=== PATIENT | male | born 1960 | race Caucasian/White ===

== ENCOUNTER 2016-10-12 12:32 | Inpatient (IN) | payer OTHER, MEDICARE ==
[~2016-10-12] VITALS: Ht 177.8 cm; Wt 83.2 kg
[~2016-10-12 12:32] MED LIST: AMLODIPINE10 MG PO; BYSTOLIC10 M1 PO; BYSTOLIC20 M1 PO; CHILDREN'S ASPI81 M1 PO; CRESTOR20 M2 PO; ESCITALOPRAM OX10 MG PO; HYDRALAZINE HCL50 M1 PO; LANTUS SOLOS100 U/ML SC; LASIX40 MG PO; LEVEMIR 10100 UNITS/ SC; LEVEMIR FLEX100 U/ML SC; LEVEMIR100 UNIT/1 SC; LEXAPRO 10MG10 MG PO; LISINOPRIL2.5 M1 PO; LOMOTIL 2.5-0.1 EACH PO; METOCLOPRAM5 MG/5 M2 PO; METRONIDAZOLE500 M1 PO; MIRALAX17 GM PO; NEPHROCAPS1 TAB PO; NOVOLOG FL100 UNIT/1; NOVOLOG FLEX100 U/ML SC; NOVOLOG100 U/ML SC; NOVOLOG100 UNIT/1 SC; NOVOLOG100 UNIT/2 SC; PERCOCET 325 MG1 TA2 PO; Prinivil PO; REGLAN10 M1 PO; SENOKOT8.6 MG PO; SYNTHROID112 MCG PO; VANCOMYCIN HCL125 MG PO; ZOFRAN 4 MG TABL4 MG PO; ZOFRAN4 M1 PO
--- NOTE | 2016-10-12 13:06 | ED GENERAL ADULT ---
History of Present Illness General Chief Complaint: Nausea, Vomiting, Diarrhea Stated Complaint: NVD; BLOOD SUGAR 518 Source: patient, old records, friend Exam Limitations: no limitations Vital Signs & Intake/Output Vital Signs & Intake/Output Vital Signs Date Time Temp Pulse Resp B/P Pulse O2 O2 Flow FiO2 Ox Delivery Rate 10/12 1528 98.6 73 18 148/72 96 Room Air 10/12 1325 186/74 10/12 1252 96.9 86 18 190/100 96 Room Air Allergies Coded Allergies: NO KNOWN ALLERGIES (10/12/16) Reconcile Medications Aspirin (Children's Aspirin) 81 MG TAB.CHEW 2 TAB PO DAILY HEART HEALTH ( Reported) Escitalopram Oxalate 20 MG TABLET 1 TAB PO DAILY MENTAL HEALTH (Reported) Folic Acid/Vit Bcomp,C (Robina-Jorge Tablet) 0.8 MG TABLET 1 TAB PO DAILY KIDNEY SUPPLEMENT (Reported) Hydralazine HCl 50 MG TABLET 50 MG PO TID HEART (Reported) Insulin Aspart (Novolog) 100 UNIT/ML VIAL 0 UNITS SC TIDAC/HS diabetes BEFORE MEALS Blood Insulin Sugar Units <80 0 81-150 4 151-200 5 201-250 6 251-300 7 301-350 8 351-400 9 >400 10, Call Doctor AT BEDTIME Blood Insulin Sugar Units <80 0 81-100 0 101-200 0 201-250 0 251-300 2 301-350 3 351-400 4 >400 5 Insulin Detemir (Levemir) 100 UNIT/ML VIAL 11 UNITS SC BID diabetes Levothyroxine Sodium (Synthroid) 125 MCG TABLET 1 TAB PO DAILY THYROID ( Reported) Lisinopril 2.5 MG TABLET 1 TAB PO D HIGH BLOOD PRESSURE (Reported) Metoclopramide HCl 5 MG/5 ML (5 ML) SOLUTION 5 ML PO Q6P PRN NAUSEA/VOMITING Nebivolol HCl (Bystolic) 20 MG TABLET 1 TAB PO DAILY HEART (Reported) Rosuvastatin Calcium (Crestor) 20 MG TABLET 1 TAB PO DAILY cholesterol ( Reported) Triage Note: 56 Y/O MALE C/O N/V/D SINCE YESTERDAY; STATES HE HAD HIS DIALYSIS YESTERDAY WITH NO PROBLEMS BUT THEN BEGAN TO FEEL ILL AFTERWARDS. HAS BEEN UNABLE TO TOLERATE PO INTAKE X 24 HOURS. VOMITING SMALL AMOUNT IN BUCKET. 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 Triage Nurses Notes Reviewed? yes HPI: Patient is a 56-year-old male presents complaining of nausea, vomiting onset yesterday. Numerous episodes of vomiting since yesterday. Patient's blood sugar was greater than 500 at home today. Mild abdominal pain which patient attributes to his episodes of vomiting. Mild associated diarrhea. Patient has end-stage renal disease, on dialysis Tuesday, Tuesday, Tuesday. Patient completed his dialysis treatment yesterday. Denies chest pain, dyspnea, fevers, chills. (SANT[place] MAO) Past History Travel History Traveled to [place] past 21 day No Medical History Any Pertinent Medical History? 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 Laser eye surgery RIGHT SIDED CYNTHIA CATHETER Psychosocial History Who do you live with Brother Services at Home None What is your primary language Macanese Tobacco Use: Never used Family History Family History, If Any: BROTHER Diabetes mellitus BROTHER Diabetes mellitus MOTHER FH: colon cancer FATHER Aortic valve disorder BROTHER Relation not specified for: FHx: chronic kidney disease Hx Contributory? No (SANTOS MAO) Review of Systems Review of Systems Constitutional: Reports: malaise, weakness. EENTM: Reports: no symptoms. Respiratory: Denies: cough, short of breath. Cardiovascular: Denies: chest pain. GI: Reports: abdominal pain, nausea, vomiting. Musculoskeletal: Reports: no symptoms. Skin: Reports: no symptoms. Neurological/Psychological: Reports: no symptoms. Hematologic/Endocrine: Reports: other (elevated blood sugar). Immunologic/Allergic: Denies: splenectomy. (SANT[place] MAO) Physical Exam Physical Exam General Appearance: alert, awake, lethargic Head: atraumatic, normal appearance Eyes: Bilateral: normal appearance, PERRL, EOMI. Ears, Nose, Throat: dry mucous membranes Neck: normal inspection, supple, full range of motion Respiratory: normal breath sounds, chest non-tender, lungs clear Cardiovascular: regular rate/rhythm Gastrointestinal: soft, midl diffuse lower abdominal tenderness. Negative Bhat's sign Back: normal inspection, normal range of motion Extremities: normal range of motion Neurologic/Psych: awake, mildly lethargic. Easily responds to verbal stimuli Skin: intact, normal color, warm/dry Lymphatic: no anterior cervical mignon Core Measures ACS in differential dx? No CVA/TIA Diagnosis: No Severe Sepsis Present: No Septic Shock Present: No (EDGAR BLANCO,SANTOS) Progress Differential Diagnoses I considered the following diagnoses in my evaluation of the patient: Plan of Care: Orders Procedure Date/time Status CBC WITHOUT DIFFERENTIAL 10/13 0500 Active BASIC ELECTROLYTES PLUS BUN&CR 10/13 0100 Active EKG 10/13 0100 Active Nothing by Mouth 10/12 D Active TROPONIN LEVEL 10/12 1900 Active BASIC ELECTROLYTES PLUS BUN&CR 10/12 1900 Active EKG 10/12 1700 Active LACTIC ACID 10/12 1630 Active BASIC ELECTROLYTES PLUS BUN&CR 10/12 1600 Active Add-on Test (ER Only) 10/12 1531 Active TROPONIN LEVEL 10/12 1502 Active Pathway - chart 10/12 1456 Active Pathway - chart 10/12 1453 Active House Staff 10/12 1453 Active Patient Data 10/12 1453 Active Code Status 10/12 1453 Active Add-on Test (ER Only) 10/12 1448 Active Add-on Test (ER Only) 10/12 1447 Active Patient Data 10/12 1411 Active Admit to inpatient 10/12 1339 Active FingerStick- Glucose 10/12 1319 Active MIXED VENOUS BLOOD GAS (GEN) 10/12 1311 Complete URINALYSIS 10/12 1311 Active TROPONIN LEVEL 10/12 1311 Complete LIPASE 10/12 1311 Complete COMPREHENSIVE METABOLIC PANEL 10/12 1311 Complete CBC WITHOUT DIFFERENTIAL 10/12 1311 Complete AMYLASE 10/12 1311 Complete ACETONE 10/12 1311 Complete LACTIC ACID 10/12 1310 Complete FingerStick- Glucose 10/12 1308 Complete EKG 10/12 1308 Active Intake & Output 10/12 1306 Active Hemoccult 10/12 UNK Active FingerStick- Glucose 10/[address] ABD & PELVIS W IV CONTRAST 10/12 UNK Active Current Medications Sig/Rosi Start time Last Medication Dose Stop Time Status Admin Aspirin 162 MG DAILY 10/13 1000 UNVr (Aspirin) Escitalopram Oxalate 20 MG DAILY 10/13 1000 UNVr (Lexapro) Levothyroxine Sodium 0.125 MG DAILY 10/13 1000 UNVr (Synthroid) Multivitamins 1 TAB DAILY 10/13 1000 UNVr (Nephrocaps) Atorvastatin Calcium 80 MG 1700 10/12 1700 UNVr (Lipitor) Hydralazine HCl 50 MG TID 10/12 1600 UNVr (Apresoline) Lisinopril 2.5 MG .[D] 10/12 1515 UNVr (Prinivil) Nebivolol 20 MG DAILY 10/12 1508 UNVr (Bystolic) Acetaminophen 650 MG Q6P PRN 10/12 1500 AC (Tylenol) Morphine Sulfate 2 MG Q6-PRN PRN 10/12 1500 UNVr (Morphine) Ondansetron HCl 4 MG Q8P PRN 10/12 1500 UNVr (Zofran) Oxycodone/ 1 TAB Q6P PRN 10/12 1500 UNVr Acetaminophen (Percocet) Sodium Chloride 1,000 ML Q10H 10/12 1500 UNVr (Normal Saline 0.9%) 10/13 0159 Heparin Sodium 5,000 UNIT Q8 10/12 1453 AC (Porcine) Laboratory Tests 10/12/16 1420: Lactic Acid Cancelled 10/12/16 1320: Bicarbonate Actual 15 L, Mixed VBG pH 7.27 L, Mixed VBG pCO2 34 L, Mixed VBG O2 Saturation 49 H, P-50 (Temp Corrected) N, Carboxyhemoglobin 0.7 L, O2 Concentration % .21, O2 Delivery Method RA, Phlebotomy Draw Site RIGHT HAND 10/12/16 1310: Anion Gap 25 H, Estimated GFR 16 L, BUN/Creatinine Ratio 13.0, Glucose 648 *H, Lactic Acid 3.5 H, Calcium 8.5, Total Bilirubin 1.0, AST 22, ALT 34, Alkaline Phosphatase 173 H, Troponin I 0.06, Total Protein 6.9, Albumin 4.1, Globulin 2.8, Albumin/Globulin Ratio 1.5, Amylase < 30 L, Lipase 33, CBC w Diff NO MAN DIFF REQ, RBC 3.99 L, MCV 92.3, MCH 30.6, RDW 13.7, MPV 8.4, Gran % 79.3 H, Lymphocytes % 12.6 L, Monocytes % 7.4, Eosinophils % 0.1, Basophils % 0.6, Absolute Granulocytes 8.8 H, Absolute Lymphocytes 1.4, Absolute Monocytes 0.8 H, Absolute Eosinophils 0, Absolute Basophils 0.1, PUBS MCHC 33.1, Acetone Level POSITIVE AT 1:8 DIL 1335: Discussed with Dr. Rqoue. 10/12/2016 1:59:50 PM: Nausea significantly improved. Discussed results of labs with patient. 10/12/2016 2:10:13 PM: Discussed with Dr. Green and Dr. Acuna. Dr. Roque discussed case with Dr. Salazar for admission to ICU. (SANT[place] MAO) Initial ED EKG: normal sinus rhythm 73 bpm normal axis, borderline prolonged QT interval, no acute ST/T-wave changes compared to previous EKG Prior EKG: unchanged Rhythm Strip: normal sinus rhythm (SANT[place] MAO) Departure Departure Time of Disposition: 1417 Disposition: STILL A PATIENT Condition: Critical Clinical Impression Primary Impression: DKA (diabetic ketoacidoses) Qualifiers: Diabetes mellitus type: type 1 Diabetes mellitus complication detail: without coma Qualified Code: E10.10 - Type 1 diabetes mellitus with ketoacidosis without coma Secondary Impressions: Elevated lactic acid level, End stage renal disease Referrals: DAVIE DIAS MD (PCP/Family) Departure Forms: Customer Survey General Discharge Information Admission Note Spoke With: MINNIE SALAZAR MD Documentation of Exam: Documentation of any treatments & extenuating circumstances including Concerns Regarding Discharge (functional status, medication knowledge or non-compliance, living conditions, etc.) that warrant an admission rather than observation: ICU monitoring, insulin drip, endocrine consultation, nephrology consultation (S[place] MAO) PA/STRAIGHTENING MACHINE OPERATOR Co-Sign Statement Statement: ED Attending supervision documentation- x I saw and evaluated the patient. I have also reviewed all the pertinent lab results and diagnostic results. I agree with the findings and the plan of care as documented in the PA's/STRAIGHTENING MACHINE OPERATOR's documentation. ESRD, DM with n/v elevated FBS with gap. ICU hospitalization for insulin drip serial lab exams [] I have reviewed the ED Record and agree with the PA's/STRAIGHTENING MACHINE OPERATOR's documentation. [] Additions or exceptions (if any) to the PAs/STRAIGHTENING MACHINE OPERATOR's note and plan are summarized below: [] (BEBETO COUGHLIN,BERTHA) Critical Care Note Critical Care Note Critical Care Time: 30-74 min (EDGAR BLANCO,SANTOS)
[2016-10-12 13:23] LABS: ABSOLUTE BASOPHIL COUNT 0.1 /CUMM (0.0-0.2); ABSOLUTE EOSINOPHIL COUNT 0 /CUMM (0.0-0.7); ABSOLUTE GRANULOCYTE CT 8.8 /CUMM (1.4-6.5); ABSOLUTE LYMPH COUNT 1.4 /CUMM (1.2-3.4); ABSOLUTE MONOCYTE COUNT 0.8 /CUMM (0.10-0.60); BASOPHIL % 0.6 % (0.0-2.0); EOSINOPHIL % 0.1 % (0-5); GRANULOCYTE % 79.3 % (42.2-75.2); HEMATOCRIT 36.9 % (42-52); MEAN CORPUSCULAR HGB 30.6 PG (27.0-31.0); MEAN CORPUSCULAR HGB CONC 33.1 G/DL (33.0-37.0); MEAN CORPUSCULAR VOLUME 92.3 FL (80.0-94.0); MEAN PLATELET VOLUME 8.4 FL (7.4-10.4); PLATELET COUNT 256 /CUMM (130-400); RBC DISTRIBUTION WIDTH 13.7 % (11.5-14.5); RED BLOOD CELL CT 3.99 /CUMM (4.70-6.10); WHITE BLOOD CELL COUNT 11.1 /CUMM (4.8-10.8)
[2016-10-12] MEDS ORDERED: SYNTHROID125 MCG PO (14:10)
[2016-10-12] MEDS ORDERED: ESCITALOPRAM OX20 MG PO (14:11)
[2016-10-12] MEDS ORDERED: RENA-VITE TABL0.8 MG PO (14:12)
--- NOTE | 2016-10-12 14:36 | History & Physical ---
NEVA COUGHLIN,GENNYYvonne 10/12/16 1428: General Information and HPI MD Statement: I have seen and personally examined DAFNE DACOSTA and documented this H&P. The patient is a 56 year old M who presented with a patient stated chief complaint of [vomiting]. Source of Information: patient, old records Exam Limitations: unable to give history, clinical condition, poor historian History of Present Illness: This is a 56-year-old male with past medical history of ESRD on M/W dialysis, insulin-dependent diabetes with diabetic retinopathy/nephropathy, hypertension, hypothyroidism, hyperlipidemia, with CC of vomiting, diarrhea and lethargy. Patient was brought in by his brother, who was not in the room during our initial intake. Patient was significantly lethargic and unable to respond adequately to all our questions. Patient stated that he started vomiting prior to his dialysis appointment yesterday. He is unable to answer if he was at his baseline the days before before. He does endorse lower abdominal pain but denies chest pain, or headache. He states he still makes some urine but denies any itching, burning or any other associated symptoms. He does endorse diarrhea that started at the same time of vomiting. He denies any sick contacts, he lives with his brother, and is currently unemployed. He denies any recent smoking or drinking. Patient states he has history of appendicitis with surgery. He states he takes insulin at home and is unsure if he has missed any doses. Pt has a history of alcoholism but he states he quit drinking urine a half ago. Of note, patient has had a recent admission at on 07/2016 for similar chief complaint including diarrhea, nausea, vomiting. At that time he was found to be C. difficile positive and he was prescribed Flagyl 500 mg by mouth 3 times a day for 14 days. Additionally he's had previous admissions in 2015 for DKA. Allergies/Medications Allergies: Coded Allergies: NO KNOWN ALLERGIES (10/12/16) Home Med list Aspirin (Children's Aspirin) 81 MG TAB.CHEW 2 TAB PO DAILY HEART HEALTH ( Reported) Escitalopram Oxalate 20 MG TABLET 1 TAB PO DAILY MENTAL HEALTH (Reported) Folic Acid/Vit Bcomp,C (Robina-Bette Tablet) 0.8 MG TABLET 1 TAB PO DAILY KIDNEY SUPPLEMENT (Reported) Hydralazine HCl 50 MG TABLET 50 MG PO TID HEART (Reported) Insulin Aspart (Novolog) 100 UNIT/ML VIAL 0 UNITS SC TIDAC/HS diabetes BEFORE MEALS Blood Insulin Sugar Units <80 0 81-150 4 151-200 5 201-250 6 251-300 7 301-350 8 351-400 9 >400 10, Call Doctor AT BEDTIME Blood Insulin Sugar Units <80 0 81-100 0 101-200 0 201-250 0 251-300 2 301-350 3 351-400 4 >400 5 Insulin Detemir (Levemir) 100 UNIT/ML VIAL 11 UNITS SC BID diabetes Levothyroxine Sodium (Synthroid) 125 MCG TABLET 1 TAB PO DAILY THYROID ( Reported) Lisinopril 2.5 MG TABLET 1 TAB PO D HIGH BLOOD PRESSURE (Reported) Metoclopramide HCl 5 MG/5 ML (5 ML) SOLUTION 5 ML PO Q6P PRN NAUSEA/VOMITING Nebivolol HCl (Bystolic) 20 MG TABLET 1 TAB PO DAILY HEART (Reported) Rosuvastatin Calcium (Crestor) 20 MG TABLET 1 TAB PO DAILY cholesterol ( Reported) Compliance With Home Meds: UNKNOWN Past History Travel History Traveled to [place] past 21 day No Medical History Neurological: CVA, TIA, NEUROPATHY EENT: diabetic retinopathy, retinal edema Cardiovascular: hypertension, hyperlipidemia Respiratory: NONE Gastrointestinal: C-DIFF Hepatic: cholecystitis Renal: chronic kidney disease, DIALYSIS M-W-F FISTULA L ARM Psychiatric: alcohol dependence (he has a history of alcohol ab), anxiety, depression, substance abuse, he has a remote history of alcohol abuse but has not consumed alcohol in the year he is not used injection drugs Endocrine: diabetes, hypothyroidism Blood Disorders: NONE Cancer(s): SKIN CANCER 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 Laser eye surgery RIGHT SIDED CYNTHIA CATHETER Past Family/Social History Family History Relations & Conditions if any BROTHER Diabetes mellitus BROTHER Diabetes mellitus MOTHER FH: colon cancer FATHER Aortic valve disorder BROTHER Relation not specified for: FHx: chronic kidney disease Psychosocial History Who Do You Live With? sibling---brother Services at Home: None Primary Language: Belarusian Functional Ability ADLs Needs Assist: dressing, eating, toileting, bathing. Ambulation: independent Review of Systems Review of Systems Constitutional: Reports: malaise, weakness. EENTM: Reports: no symptoms. Cardiovascular: Denies: chest pain. Respiratory: Denies: cough, short of breath. GI: Reports: abdominal pain, diarrhea, nausea, vomiting. Genitourinary: Reports: no symptoms. Musculoskeletal: Reports: no symptoms. Skin: Reports: no symptoms. Exam & Diagnostic Data Last 24 Hrs of Vital Signs/I&O Vital Signs Date Time Temp Pulse Resp B/P Pulse O2 O2 Flow FiO2 Ox Delivery Rate 10/12 1555 98.6 73 18 148/72 10/12 1533 96 Room Air 10/12 1528 98.6 73 18 148/72 96 Room Air 10/12 1325 186/74 10/12 1252 96.9 86 18 190/100 96 Room Air Intake & Output 10/12 1600 10/12 0800 10/12 0000 Intake Total Output Total Balance Patient 87.543 kg Weight Physical Exam General Appearance Mild Distress, pt is lethargic and answers questions after much prompting. Skin No Significant Lesion HEENT Atraumatic, PERRLA, EOMI Neck Supple Cardiovascular Regular Rate, Normal S1, Normal S2 Lungs Clear to Auscultation, Normal Air Movement Abdomen pt is exquisitely tender in lower abdomen. BS+ X4. He exhibits some guarding but no rigidity. Neurological pt is lethargic. speech a little slurred and fragmented. Moving all extrimities spontaneously. Last 24 Hrs of Labs/Cristian: Laboratory Tests 10/12/16 1606: Sodium Cancelled, Potassium Cancelled, Chloride Cancelled, Carbon Dioxide Cancelled, Anion Gap Cancelled, BUN Cancelled, Creatinine Cancelled, Glucose Cancelled, Calcium Cancelled, Phosphorus Cancelled, Magnesium Cancelled, Total Bilirubin Cancelled, AST Cancelled, ALT Cancelled, Albumin Cancelled 10/12/16 1420: Lactic Acid Cancelled 10/12/16 1320: Bicarbonate Actual 15 L, Mixed VBG pH 7.27 L, Mixed VBG pCO2 34 L, Mixed VBG O2 Saturation 49 H, P-50 (Temp Corrected) N, Carboxyhemoglobin 0.7 L, O2 Concentration % .21, O2 Delivery Method RA, Phlebotomy Draw Site RIGHT HAND 10/12/16 1310: Anion Gap 25 H, Estimated GFR 16 L, BUN/Creatinine Ratio 13.0, Glucose 648 *H, Lactic Acid 3.5 H, Calcium 8.5, Total Bilirubin 1.0, AST 22, ALT 34, Alkaline Phosphatase 173 H, Troponin I 0.06, Total Protein 6.9, Albumin 4.1, Globulin 2.8, Albumin/Globulin Ratio 1.5, Amylase < 30 L, Lipase 33, CBC w Diff NO MAN DIFF REQ, RBC 3.99 L, MCV 92.3, MCH 30.6, RDW 13.7, MPV 8.4, Gran % 79.3 H, Lymphocytes % 12.6 L, Monocytes % 7.4, Eosinophils % 0.1, Basophils % 0.6, Absolute Granulocytes 8.8 H, Absolute Lymphocytes 1.4, Absolute Monocytes 0.8 H, Absolute Eosinophils 0, Absolute Basophils 0.1, PUBS MCHC 33.1, Acetone Level POSITIVE AT 1:8 DIL Microbiology 10/12 160 UPPER RESP: Surveillance Culture - ORD 10/12 1608 GI: Surveillance Culture - ORD Assessment/Plan Assessment: This is a 56-year-old male with PMH of ESRD on MWF hemodialysis, T1 insulin- dependent diabetes with resulting retinopathy, nephropathy and previous episodes of DKA, who had a previous admission at [facility] for C. difficile colitis who presents for CC N/V/D and AMS. ED workup showed temperature 96.9, pulse 86, respiration 18, blood pressure 190/ 100 and Pox 96. VBG showed 7.27/34/49. Anion gap 25. Glucose 648. BEP showed sodium 136, potassium 5.2, chloride 9.8, CO2 13, BUN 52, creatinine 4.0. Glucose of 648. Alkaline phosphatase 173. Negative amylase and lipase. Positive for acetone. CBC showed white count 11.1, hemoglobin 12.2, hematocrit 36.9, platelet 256. PLAN: Acid base disorder: VBG 7.27/34/49. Anion gap 25. Glucose 648. Corrected Na at 145. Pt has lactic acid at 3.5. Pt has positive Acetone. Given history and presentation pt is in DKA. Upon workup of his acid base disorder Chun formula shows primary respiratory acidosis as well; delta gap shows pure AGMA. Etiology of patient's acid base disorder is most likely anion gap metabolic acidosis secondary to lactic acid and DKA along with a primary respiratory acidosis. Of note, patient has had previous admission with slight increase in troponin of 0.12, we will trend troponins at this time. * Trend lactic acid * Trend troponins and EKG * Follow-up serum osm * Titrate insulin drip * q1 finger stick * NPO currently * Currently on 1/2 NS; will convert to D5 1/2 NS when blood sugars reach 200 mg/ dL * Replete K if < 5.2 Hypernatremia: Pt has measured Na of 136; Corrected sodium of around 145; given hyperglycemia of 648. Likely 2/2 DKA and urinary losses. * con't fluids as above * recheck bep Altered mental status: Patient came in with altered mental status and lethargy. He was unable to answer most questions at admission; during the interview he kept his eyes closed and was slow to respond. Differential includes: his lactic acidosis in combination with DKA causing AMS, high ammonia, possible ingestion. * treat underlying metabolic disorder * f/u lactic acid * f/u ammonia level ESRD: Patient is ESRD secondary to diabetic nephropathy. He has access in his left arm. He last got dialysis yesterday. He is going for CT abdomen with contrast today. We have coordinated with Dr. Green to ensure that patient will get dialysis tomorrow. * Access in l. arm with good flow * Dialysis tomorrow * con't lisinopril 2.5 * Avoid nephrotoxins * Con't Nephro-bette Hematemesis: Pt has had several episodes of nausea and vomiting in ED. He states that it started yesterday before dialysis. The emesis is thin liquid with little food content; but it was confirmed to be guiac positive. He also endorses significant lower abodminal pain. Given hx of T1 DM with retinopathy and nehpropathy likely there is some component of gastroparesis. But cannot rule out acute abdominal process. However, wbc at 11.1 with no bands and H/H stable at 12.2 and 36.9. Amylase negative, lipase negative. Alkaline phosphatase 173. * Trend lactic acid * CT Abdomen with IV contrast * Metaclopramide * Pt has adverse rxn to zofran so will give phergan Hypertension: Pt came in with systolic 190. Con't home reg and dialysis. * Hydralazine 50 mg 3 times a day * Bystolic 20 mg daily * Lisinopril 2.5 mg daily Hypothyroid: Con't lvothyroxine 125 FULL CODE NPO MECHANICAL DVT PROPHYLAXIS As Ranked By This Provider Problem List: 1. End stage renal disease 2. Elevated lactic acid level 3. Vomiting 4. Hyperglycemia 5. DKA (diabetic ketoacidoses) Qualifiers Diabetes mellitus type: type 1 Diabetes mellitus complication detail: without coma Qualified Code: E10.10 - Type 1 diabetes mellitus with ketoacidosis without coma 6. Lactic acidosis Core Measures/Miscellaneous Acute Coronary Syndrome ACS Diagnosis: No Cerebrovascular Accident CVA/TIA Diagnosis: No Congestive Heart Failure CHF Diagnosis: No Venous Thromboembolism VTE Risk Factors: Acute medical illness, Age > 40 VTE Prophylaxis Ordered Inpt: Mechanical (ALPS/TEDS) No Mech VTE prophylaxis d/t: No contraindications No VTE Pharm Prophylaxis d/t: Active bleeding VTE Diagnosis: No VTE Type: NONE VTE Confirmed by (Test): NONE Severe Sepsis Severe Sepsis Present: No Septic Shock Septic Shock Present: No Miscellaneous Documentation Attending Case Discussed With: MINNIE SALAZAR MD Primary Care Physician: DAVIE DIAS MD Patient sees these Specialists Dr. Green Level of Patient Care: Critical Care (CRI) NURIS HEARD 10/12/16 2629: Resident Review Statement Other Findings: Mr. Dacosta is a is a 56-year-old gentleman with past medical history of ESRD on HD MWF (L arm fistula) 2/2 DM, also complicated with diabetic retinopathy, hypertension, hypothyroidism, and HLD who presents to the ED from home w complaints of nausea/vomitting/diarrhea x1 day. He is quite lethargic at the time of the interview and is unable to communicate his history thoroughly. Most of his previous medical history was obtained from the EMR. As far as he knows, he has been taking all his medication and insulin. In the ED, vitals were T96.9, HR86, RR18, BP190/100 saturating 96 on RA. He was found to have an elevated blood glucose level of 648 with positive acetone 1:8, AG 25, bicarb 13. WBC 11.1, H/H 12.2/36.9. BEP showed Na 136, K 5.2, BUN/ creatinine 52/4.0. Lactic acid 3.5. Troponin 0.06. LFTs within normal limits. Alkaline phosphatase 173. In the emergency department he as boost with 1 L of normal saline and started on an insulin drip. Problem List/Assessment and Plan Ketoacidosis * Possibly due to infection [abdomen] compliance, the patient was unable to remember if he has been compliant with his medication over the last few days. We will make the patient ICU, continue insulin drip, as well as the fluids. * Corrected Na 149 (based on glucose 648), and as he is euvolemic, we will start half normal saline at 250 mL per hour. * Once his potassium drops below 5.3, we will replete potassium in the IV fluids to keep it between 4 - 5 mEq/L. * We will check labs every 2-4 hours, 4 PM and 7 PM on resolution of his gap and once his DKA has resolved and the patient is able to eat, we will dose NovoLog SC with a 1-2 hour IV insulin overlap. * Once glucose reaches 200 mg/dL, we will convert half-normal NS to D5-1/2NS. * q1 fingersticks * Endo and renal consults placed and appreciated. * IV contrast CT of the abd/pelvis to evaluate for source of infection - the patient has previously been admitted with c.diff colitis. We will also send c.diff culture and norovirus PCR. ESRD * Nephro on board, and the pt is scheduled for HD tomrrow am. * Avoid all NSAIDs and neprho toxins. continue home medications including Nephro-Vites, Lexapro 20 mg, levothyroxine 125 g, ASA, lisinopril 2.5 daily, hydralazine 50 mg TID, and bystolic 20 mg daily. full code NPO for now with zofran for n/v heparin for DVT prophylaxis Tylenol, percocet and morphine for pain control MINNIE SALAZAR MD 10/13/16 5123: Attending MD Review Statement Attending Statement Attending Statement: examined this patient, discuss w/resident/PA/CONCRETE BATCH PLANT OPERATOR, agreed w/resident/PA/CONCRETE BATCH PLANT OPERATOR, discussed with family, reviewed EMR data (avail), discussed with nursing, discussed with case mgmt, reviewed images, amended to note Attending Assessment/Plan: Impression 56M DKA due to nausea/vomiting hx c.diff ESRD Plan -endocrinology and nephrology consultation -abd imaging to rule out any abd pathology for cause of nausea/vomiting -zhou culture -ekg, troponin monitoring -insulin drip -iv fluid hydration -monitor ins/outs/electrolytes -DVT prophylaxis at all times TTS 40 min
--- NOTE | 2016-10-12 15:36 | Admission Certification ---
Admission Certification Certification Statement - As attending physician, I certify that at the time of - admission, based on clinical presentation, severity of - symptoms, need for further diagnostic testing and - therapeutic interventions, and risk of adverse outcomes - without in-hospital treatment, in my clinical assessment, - this patient requires an acute hospital stay for a minimum - of two nights or longer. I have also considered psychsocial - factors such as support system, advanced age, financial - issues, cognitive issues, and failed out-patient treatments, - past re-admission history, safety of patient, and lack of - compliance as applicable. Specific rationale supporting this admission is: icu admission for dka/insulin drip
--- NOTE | 2016-10-12 17:55 | CT SCAN REPORT ---
EXAMINATION: CT ABDOMEN AND PELVIS WITH CONTRAST CLINICAL INFORMATION: Diffuse lower abdominal pain. History of C. difficile. COMPARISON: CT scan abdomen pelvis 07/05/2016. TECHNIQUE: Multidetector volumetric imaging was performed of the abdomen and pelvis after the IV administration of 95 mL of Optiray 320 intravenous contrast. Sagittal and coronal reformatted images were obtained on the technologist's workstation. DLP: 436.75 mGy-cm FINDINGS: LUNG BASES: Bibasilar dependent atelectasis at both lung bases. Small layering bilateral pleural effusions. LIVER, GALLBLADDER, AND BILIARY TREE: The liver is normal in size, shape, and attenuation. No focal hepatic lesion or biliary ductal dilatation is present. There are multiple small calcified gallstones in the bladder. No edema around the gallbladder. No bile duct dilatation. The extrahepatic CBD measures 7 mm. No calcified stone within the bile ducts. PANCREAS: Unremarkable. SPLEEN: Unremarkable. ADRENAL GLANDS: Unremarkable. KIDNEYS AND URETERS: Mild hydronephrosis of the right and left kidney with dilatation of renal pelvis and calyces and ureters to the ureterovesical junction bilaterally. This is new since the prior CAT scan 07/05/2016. No renal or ureteral calculi. BLADDER: The bladder is distended. Gallbladder almost to the level of the umbilicus. Bladder measures 16 x 10.5 x 10.4 cm. No stone within the bladder. No bladder wall thickening or edema around the bladder. GASTROINTESTINAL TRACT: The small and large bowel are unremarkable. No diverticula. No bowel wall thickening or edema. No bowel obstruction. Moderate volume of stool in the colon. The appendix is not identified. There is no inflammation of the mesentery.. ABDOMINAL WALL: Small fat-containing umbilical hernia. LYMPH NODES: Normal. VASCULAR: Unremarkable. PELVIC VISCERA: Unremarkable. OSSEOUS STRUCTURES: Mild degenerative change of the hips bilateral. IMPRESSION: 1. Small dependent bilateral pleural effusions with bibasilar atelectasis. 2. Cholelithiasis. No bile duct dilatation. 3. Mild hydronephrosis of both kidneys with distended bladder. This is new since prior CAT scan 07/05/2016. 4. No acute change of the bowel.
[2016-10-12 18:00] VITALS: BP 148/64
--- NOTE | 2016-10-12 19:47 | Cons- Endocrinology ---
General Information and HPI Consulting Request Date of Consult: 10/12/16 Requested By: ICU Reason for Consult: DKA Source of Information: patient, family, old records Exam Limitations: no limitations History of Present Illness: 56-year-old male with past medical history of DM type 1 complicated with diabetic retinopathy and end-stage renal disease on hemodialysis, hypertension, hypothyroidism and dyslipidemia, presented with nausea, vomiting for the past several days. At home, he was on Levemir 11 units twice a day, Novolog coverage before meals. Over the past several days, he was only on levemir as he wasn't able to eat. In ER, his glucose level was > 600, bicarb 13 and AG 25. He is receiving NS bolus and insulin drip at 6 units per hour. Allergies/Medications Allergies: Coded Allergies: NO KNOWN ALLERGIES (10/12/16) Home Med List: Aspirin (Children's Aspirin) 81 MG TAB.CHEW 2 TAB PO DAILY HEART HEALTH ( Reported) Escitalopram Oxalate 20 MG TABLET 1 TAB PO DAILY MENTAL HEALTH (Reported) Folic Acid/Vit Bcomp,C (Robina-Jorge Tablet) 0.8 MG TABLET 1 TAB PO DAILY KIDNEY SUPPLEMENT (Reported) Hydralazine HCl 50 MG TABLET 50 MG PO TID HEART (Reported) Insulin Aspart (Novolog) 100 UNIT/ML VIAL 0 UNITS SC TIDAC/HS diabetes BEFORE MEALS Blood Insulin Sugar Units <80 0 81-150 4 151-200 5 201-250 6 251-300 7 301-350 8 351-400 9 >400 10, Call Doctor AT BEDTIME Blood Insulin Sugar Units <80 0 81-100 0 101-200 0 201-250 0 251-300 2 301-350 3 351-400 4 >400 5 Insulin Detemir (Levemir) 100 UNIT/ML VIAL 11 UNITS SC BID diabetes Levothyroxine Sodium (Synthroid) 125 MCG TABLET 1 TAB PO DAILY THYROID ( Reported) Lisinopril 2.5 MG TABLET 1 TAB PO D HIGH BLOOD PRESSURE (Reported) Metoclopramide HCl 5 MG/5 ML (5 ML) SOLUTION 5 ML PO Q6P PRN NAUSEA/VOMITING Nebivolol HCl (Bystolic) 20 MG TABLET 1 TAB PO DAILY HEART (Reported) Rosuvastatin Calcium (Crestor) 20 MG TABLET 1 TAB PO DAILY cholesterol ( Reported) Review of Systems Review of Systems Constitutional: Reports: see HPI. Cardiovascular: Denies: chest pain. Respiratory: Reports: short of breath. GI: Reports: abdominal pain, nausea, vomiting. Genitourinary: Denies: dysuria. Hematologic/Endocrine: Denies: polyuria, polydipsia. Past History Travel History Traveled to [place] past 21 day No Medical History Neurological: CVA, TIA, NEUROPATHY EENT: diabetic retinopathy, retinal edema Cardiovascular: hypertension, hyperlipidemia Respiratory: NONE Gastrointestinal: C-DIFF Hepatic: cholecystitis Renal: chronic kidney disease, DIALYSIS M-W-F FISTULA L ARM Psychiatric: alcohol dependence (he has a history of alcohol ab), anxiety, depression, substance abuse, he has a remote history of alcohol abuse but has not consumed alcohol in the year he is not used injection drugs Endocrine: diabetes, hypothyroidism Blood Disorders: NONE Cancer(s): SKIN CANCER 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 Home Who Do You Live With? sibling---brother Services at Home: None Primary Language: Iranian Smoking Status: Never Smoked Functional Ability ADLs Needs Assist: dressing, eating, toileting, bathing. Ambulation: independent Exam & Diagnostic Data Last 24 Hrs of Vital Signs/I&O Vital Signs Date Time Temp Pulse Resp B/P Pulse O2 O2 Flow FiO2 Ox Delivery Rate 10/12 1800 98.4 77 22 148/64 10/12 1800 96 Room Air 10/12 1800 98.4 77 22 148/64 96 Room Air 10/12 1555 98.6 73 18 148/72 10/12 1533 96 Room Air 10/12 1528 98.6 73 18 148/72 96 Room Air 10/12 1325 186/74 10/12 1252 96.9 86 18 190/100 96 Room Air Intake & Output 10/12 1600 10/12 0800 10/12 0000 Intake Total Output Total Balance Patient 193 lb Weight Physical Exam General Appearance: lethargic, moderate distress Neck: normal inspection Respiratory: lungs clear Cardiovascular: tachycardia (mild) Gastrointestinal: tenderness (at epigastric area) Extremities: no edema Labs/Cristian Results: Laboratory Tests 02/10/12 1720 1713 1713 1713 1606 Chemistry Sodium (137 - 145 mmol/L) 139 Cancelled Potassium (3.5 - 5.1 mmol/L) 4.5 Cancelled Chloride (98 - 107 mmol/L) 101 Cancelled Carbon Dioxide (22 - 30 mmol/L) 19 L Cancelled Anion Gap (5 - 16) 18 H Cancelled BUN (9 - 20 mg/dL) 56 H Cancelled Creatinine (0.7 - 1.2 mg/dL) 4.0 H Cancelled Estimated GFR (>60 ml/min) 16 L Glucose (65 - 99 mg/dL) 562 *H Cancelled Lactic Acid (0.7 - 2.1 mmol/L) Cancelled 1.9 Calcium (8.4 - 10.2 mg/dL) 8.0 L Cancelled Phosphorus (2.5 - 4.5 mg/dL) 3.6 Cancelled Magnesium (1.6 - 2.3 mg/dL) 2.1 Cancelled Total Bilirubin (0.2 - 1.3 mg/dL) 0.8 Cancelled AST (17 - 59 U/L) 24 Cancelled ALT (21 - 72 U/L) 35 Cancelled Ammonia (9 - 30 umol/L) < 9 L Albumin (3.5 - 5.0 g/dL) 3.4 L Cancelled 10/12 10/12 1420 1320 Blood Gas Bicarbonate Actual (22 - 26 MEQ/L) 15 L Mixed VBG pH (7.31 - 7.41 PH) 7.27 L Mixed VBG pCO2 (41 - 51 TORR) 34 L Mixed VBG O2 Saturation (35 - 45 TORR) 49 H P-50 (Temp Corrected) N Carboxyhemoglobin (1.5 - 5.0 %) 0.7 L O2 Concentration % .21 O2 Delivery Method RA Chemistry Lactic Acid Cancelled Miscellaneous Phlebotomy Draw Site RIGHT HAND 10/12 1310 Chemistry Sodium (137 - 145 mmol/L) 136 L Potassium (3.5 - 5.1 mmol/L) 5.2 H Chloride (98 - 107 mmol/L) 98 Carbon Dioxide (22 - 30 mmol/L) 13 L Anion Gap (5 - 16) 25 H BUN (9 - 20 mg/dL) 52 H Creatinine (0.7 - 1.2 mg/dL) 4.0 H Estimated GFR (>60 ml/min) 16 L BUN/Creatinine Ratio (7 - 25 %) 13.0 Glucose (65 - 99 mg/dL) 648 *H Serum Osmolality (285 - 295 MOSM/KG) 343 H Lactic Acid (0.7 - 2.1 mmol/L) 3.5 H Calcium (8.4 - 10.2 mg/dL) 8.5 Total Bilirubin (0.2 - 1.3 mg/dL) 1.0 AST (17 - 59 U/L) 22 ALT (21 - 72 U/L) 34 Alkaline Phosphatase (< 127 U/L) 173 H Troponin I (<0.11 ng/ml) 0.06 Total Protein (6.3 - 8.2 g/dL) 6.9 Albumin (3.5 - 5.0 g/dL) 4.1 Globulin (1.9 - 4.2 gm/dL) 2.8 Albumin/Globulin Ratio (1.1 - 2.2 %) 1.5 Amylase (30 - 110 U/L) < 30 L Lipase (23 - 300 U/L) 33 Hematology CBC w Diff NO MAN DIFF REQ WBC (4.8 - 10.8 /CUMM) 11.1 H RBC (4.70 - 6.10 /CUMM) 3.99 L Hgb (14.0 - 18.0 G/DL) 12.2 L Hct (42 - 52 %) 36.9 L MCV (80.0 - 94.0 FL) 92.3 MCH (27.0 - 31.0 PG) 30.6 RDW (11.5 - 14.5 %) 13.7 Plt Count (130 - 400 /CUMM) 256 MPV (7.4 - 10.4 FL) 8.4 Gran % (42.2 - 75.2 %) 79.3 H Lymphocytes % (20.5 - 51.1 %) 12.6 L Monocytes % (1.7 - 9.3 %) 7.4 Eosinophils % (0 - 5 %) 0.1 Basophils % (0.0 - 2.0 %) 0.6 Absolute Granulocytes (1.4 - 6.5 /CUMM) 8.8 H Absolute Lymphocytes (1.2 - 3.4 /CUMM) 1.4 Absolute Monocytes (0.10 - 0.60 /CUMM) 0.8 H Absolute Eosinophils (0.0 - 0.7 /CUMM) 0 Absolute Basophils (0.0 - 0.2 /CUMM) 0.1 PUBS MCHC (33.0 - 37.0 G/DL) 33.1 Toxicology Acetone Level (NEGATIVE) POSITIVE AT 1:8 DIL Assessment/Plan Assessment/Plan 56-year-old male with past medical history of DM type 1 complicated with diabetic retinopathy and end-stage renal disease on hemodialysis, hypertension, hypothyroidism and dyslipidemia, presented with nausea, vomiting for the past several days. He has been hydrated with NS and he was put on insulin drip at 6 units per hour. Repeat bloodwork done at around 5 pm showed improvement. 1. continue insulin drip; monitor FSGs every one hour and then adjust insulin drip accordingly. 2. agree with changing IVF to 1/2NS with 20 meq of KCL. However, I will adjust his IVF rate based on in and out as he is a patient wth ESRD. 3. continue monitoring electrolytes every 4-6 hours; 4. add dextrose if his glucose level is less than 250. 5. continuethe current other supportive treatment. will follow. Consult Acknowledgment - Thank you for your consult request.
[2016-10-12 20:00] VITALS: BP 161/67
[2016-10-12 22:00] VITALS: BP 135/54
[2016-10-13] VITALS: BP 120/60
[2016-10-13 02:00] VITALS: BP 167/71
[2016-10-13 04:00] VITALS: BP 143/62
[2016-10-13 06:00] VITALS: BP 153/82
[2016-10-13 07:48] LABS: ABSOLUTE EOSINOPHIL COUNT 0.1 /CUMM (0.0-0.7); ABSOLUTE GRANULOCYTE CT 8.3 /CUMM (1.4-6.5); ABSOLUTE LYMPH COUNT 1.9 /CUMM (1.2-3.4); ABSOLUTE MONOCYTE COUNT 0.9 /CUMM (0.10-0.60); EOSINOPHIL % 0.9 % (0-5); GRANULOCYTE % 73.7 % (42.2-75.2); WHITE BLOOD CELL COUNT 11.3 /CUMM (4.8-10.8)
[2016-10-13 08:23] VITALS: BP 130/70
[2016-10-13 08:28] LABS: ABSOLUTE BASOPHIL COUNT 0 /CUMM (0.0-0.2); BASOPHIL % 0.4 % (0.0-2.0); MEAN CORPUSCULAR HGB 30.6 PG (27.0-31.0); MEAN CORPUSCULAR HGB CONC 33.2 G/DL (33.0-37.0); MEAN CORPUSCULAR VOLUME 92.2 FL (80.0-94.0); MEAN PLATELET VOLUME 8.5 FL (7.4-10.4); PLATELET COUNT 223 /CUMM (130-400); RBC DISTRIBUTION WIDTH 13.9 % (11.5-14.5); RED BLOOD CELL CT 3.32 /CUMM (4.70-6.10)
--- NOTE | 2016-10-13 08:30 | PN- Diabetes ---
Assessment/Plan Assessment: 56-year-old male with past medical history of DM type 1 complicated with diabetic retinopathy and end-stage renal disease on hemodialysis, hypertension, hypothyroidism and dyslipidemia, presented with nausea, vomiting for the past several days. He was admitted to ICU for DKA. Overnight, he was on insulin drip and IVF. DKA resolved and he feels better. He received Levemir 11 units at 6 am and insulin drip was discontinued at 7 am. He would like to eat regular food. Plan: 1. D/C IVF 2. continue Levemir 11 units twice a day; 3. adjust Novolog coverage before meals and add-on another Novolog coverage at bedtime-- detail see the inpatient DM orders. 4. monitor FSGs will follow. Inpatient Diabetes Orders Before Each Meal: Bolus Insulin: Novolog < 80 mg/dl: no coverage 80-100 mg/dl: 4 units 101-120 mg/dl: 4 units 121-150 mg/dl: 4 units 151-200 mg/dl: 5 units 201-250 mg/dl: 6 units 251-300 mg/dl: 7 units 301-350 mg/dl: 8 units 351-400 mg/dl: 9 units > 400 mg/dl: 10 units Bedtime: Bolus Insulin: Novolog < 80 mg/dl: no coverage 80-100 mg/dl: no coverage 101-120 mg/dl: no coverage 121-150 mg/dl: no coverage 151-200 mg/dl: no coverage 201-250 mg/dl: no coverage 251-300 mg/dl: 2 units 301-350 mg/dl: 3 units 351-400 mg/dl: 4 units > 400 mg/dl: 5 units Subjective Subjective: He feels better this morning. Objective Last 24 Hrs of Vital Signs/I&O Vital Signs Date Time Temp Pulse Resp B/P Pulse O2 O2 Flow FiO2 Ox Delivery Rate 10/13 822 97.8 70 20 130/70 96 Room Air 10/13 0600 64 20 153/82 10/13 0400 98.0 62 20 143/62 10/13 0400 97 Room Air 10/13 0200 65 20 167/71 10/13 0000 24.0 67 12 120/60 08 0000 97 Room Air 10/13 0000 98.5 67 24 120/60 97 Room Air 10/12 2200 64 16 135/54 02/07 2000 70 20 161/67 02/07 2000 96 Room Air 10/12 1800 98.4 77 22 148/64 10/12 1800 96 Room Air 10/12 1800 98.4 77 22 148/64 96 Room Air 10/12 1555 98.6 73 18 148/72 10/12 1533 96 Room Air 10/12 1528 98.6 73 18 148/72 96 Room Air 10/12 1325 186/74 10/12 1252 96.9 86 18 190/100 96 Room Air Intake & Output 10/13 1600 10/13 0800 10/13 0000 Intake Total 827 1236 Output Total 330 1110 Balance 497 126 Intake, IV 727 1236 Intake, Oral 100 0 Output, Urine 330 1110 Patient 188 lb Weight Findings Pertinent Lab/Cristian Results: Laboratory Tests 10/13 10/13 10/13 10/12 0650 0015 0008 2009 Chemistry Sodium (137 - 145 mmol/L) 141 141 140 Potassium (3.5 - 5.1 mmol/L) 4.2 3.8 4.1 Chloride (98 - 107 mmol/L) 106 105 101 Carbon Dioxide (22 - 30 mmol/L) 25 25 24 Anion Gap (5 - 16) 10 11 15 BUN (9 - 20 mg/dL) 52 H 54 H 54 H Creatinine (0.7 - 1.2 mg/dL) 3.9 H 4.0 H 4.1 H Estimated GFR (>60 ml/min) 16 L 16 L 15 L BUN/Creatinine Ratio (7 - 25 %) 13.2 Glucose (65 - 99 mg/dL) 151 H 231 H Cancelled 406 H Calcium (8.4 - 10.2 mg/dL) 8.4 8.5 Phosphorus (2.5 - 4.5 mg/dL) 3.8 3.4 Magnesium (1.6 - 2.3 mg/dL) 2.0 2.1 Total Bilirubin (0.2 - 1.3 mg/dL) 0.6 0.6 AST (17 - 59 U/L) 16 L 16 L ALT (21 - 72 U/L) 33 37 Troponin I (<0.11 ng/ml) 0.08 Albumin (3.5 - 5.0 g/dL) 3.1 L 3.3 L Hematology CBC w Diff Pending WBC Pending RBC Pending Hgb Pending Hct Pending MCV Pending MCH Pending RDW Pending Plt Count Pending MPV Pending PUBS MCHC Pending 10/12 10/12 10/12 1945 1720 1713 Chemistry Lactic Acid (0.7 - 2.1 mmol/L) Cancelled 1.9 Urines Urinalysis LIGHT H Urine Color (YEL,AMB,STR) YEL Urine Clarity (CLEAR) CLEAR Urine pH (5.0 - 8.0) 6.0 Ur Specific Sanderson (1.001 - 1.035) 1.020 Urine Protein (NEG,<30 MG/DL) 100 H Urine Ketones (NEG) 15 H Urine Nitrite (NEG) NEG Urine Bilirubin (NEG) NEG Urine Urobilinogen (0.1 - 1.0 EU/dl) 0.2 Ur Leukocyte Esterase (NEG) NEG Ur Microscopic SEDIMENT EXAMINED Urine RBC (0 - 5 /HPF) 3-5 Urine WBC (0 - 2 /HPF) RARE Ur Epithelial Cells (NONE,FEW) RARE Urine Mucus (FEW,NONE) FEW Urine Hemoglobin (NEG) SMALL H Urine Glucose (N MG/DL) >=1000 H 10/12 10/12 10/12 10/12 10/12 1713 1713 1606 1502 1420 Chemistry Sodium (137 - 145 mmol/L) 139 Cancelled Potassium (3.5 - 5.1 mmol/L) 4.5 Cancelled Chloride (98 - 107 mmol/L) 101 Cancelled Carbon Dioxide (22 - 30 mmol/L) 19 L Cancelled Anion Gap (5 - 16) 18 H Cancelled BUN (9 - 20 mg/dL) 56 H Cancelled Creatinine (0.7 - 1.2 mg/dL) 4.0 H Cancelled Estimated GFR (>60 ml/min) 16 L Glucose (65 - 99 mg/dL) 562 *H Cancelled Lactic Acid Cancelled Calcium (8.4 - 10.2 mg/dL) 8.0 L Cancelled Phosphorus (2.5 - 4.5 mg/dL) 3.6 Cancelled Magnesium (1.6 - 2.3 mg/dL) 2.1 Cancelled Total Bilirubin (0.2 - 1.3 mg/dL) 0.8 Cancelled AST (17 - 59 U/L) 24 Cancelled ALT (21 - 72 U/L) 35 Cancelled Ammonia (9 - 30 umol/L) < 9 L Troponin I Cancelled Albumin (3.5 - 5.0 g/dL) 3.4 L Cancelled 10/12 10/12 1320 1310 Blood Gas Bicarbonate Actual (22 - 26 MEQ/L) 15 L Mixed VBG pH (7.31 - 7.41 PH) 7.27 L Mixed VBG pCO2 (41 - 51 TORR) 34 L Mixed VBG O2 Saturation (35 - 45 TORR) 49 H P-50 (Temp Corrected) N Carboxyhemoglobin (1.5 - 5.0 %) 0.7 L O2 Concentration % .21 O2 Delivery Method RA Chemistry Sodium (137 - 145 mmol/L) 136 L Potassium (3.5 - 5.1 mmol/L) 5.2 H Chloride (98 - 107 mmol/L) 98 Carbon Dioxide (22 - 30 mmol/L) 13 L Anion Gap (5 - 16) 25 H BUN (9 - 20 mg/dL) 52 H Creatinine (0.7 - 1.2 mg/dL) 4.0 H Estimated GFR (>60 ml/min) 16 L BUN/Creatinine Ratio (7 - 25 %) 13.0 Glucose (65 - 99 mg/dL) 648 *H Serum Osmolality (285 - 295 MOSM/KG) 343 H Lactic Acid (0.7 - 2.1 mmol/L) 3.5 H Calcium (8.4 - 10.2 mg/dL) 8.5 Total Bilirubin (0.2 - 1.3 mg/dL) 1.0 AST (17 - 59 U/L) 22 ALT (21 - 72 U/L) 34 Alkaline Phosphatase (< 127 U/L) 173 H Troponin I (<0.11 ng/ml) 0.06 Total Protein (6.3 - 8.2 g/dL) 6.9 Albumin (3.5 - 5.0 g/dL) 4.1 Globulin (1.9 - 4.2 gm/dL) 2.8 Albumin/Globulin Ratio (1.1 - 2.2 %) 1.5 Amylase (30 - 110 U/L) < 30 L Lipase (23 - 300 U/L) 33 Hematology CBC w Diff NO MAN DIFF REQ WBC (4.8 - 10.8 /CUMM) 11.1 H RBC (4.70 - 6.10 /CUMM) 3.99 L Hgb (14.0 - 18.0 G/DL) 12.2 L Hct (42 - 52 %) 36.9 L MCV (80.0 - 94.0 FL) 92.3 MCH (27.0 - 31.0 PG) 30.6 RDW (11.5 - 14.5 %) 13.7 Plt Count (130 - 400 /CUMM) 256 MPV (7.4 - 10.4 FL) 8.4 Gran % (42.2 - 75.2 %) 79.3 H Lymphocytes % (20.5 - 51.1 %) 12.6 L Monocytes % (1.7 - 9.3 %) 7.4 Eosinophils % (0 - 5 %) 0.1 Basophils % (0.0 - 2.0 %) 0.6 Absolute Granulocytes (1.4 - 6.5 /CUMM) 8.8 H Absolute Lymphocytes (1.2 - 3.4 /CUMM) 1.4 Absolute Monocytes (0.10 - 0.60 /CUMM) 0.8 H Absolute Eosinophils (0.0 - 0.7 /CUMM) 0 Absolute Basophils (0.0 - 0.2 /CUMM) 0.1 PUBS MCHC (33.0 - 37.0 G/DL) 33.1 Miscellaneous Phlebotomy Draw Site RIGHT HAND Toxicology Acetone Level (NEGATIVE) POSITIVE AT 1:8 DIL
[2016-10-13 08:36] LABS: HEMATOCRIT 30.6 % (42-52)
--- NOTE | 2016-10-13 08:58 | PN- Housestaff ---
Subjective Follow-up For: DKA AMS Tele-Events Since Last Visit: No acute events on telemetry Subjective: Saw pt at bedside this AM. He was muc hmore awake and oriented than yesterday. He stated that he had no more abdominal pain. Pt on fluids but ot insulin. Stated he was hungry and thirsty. Scheduled for dialysis today. Review of Systems Constitutional: Reports: malaise, weakness. Denies: chills, diaphoresis, fever. EENTM: Reports: no symptoms. Cardiovascular: Denies: chest pain, palpitations. Respiratory: Denies: cough, hemoptysis, orthopnea, short of breath. Gastrointestinal: Denies: abdominal pain, diarrhea, vomiting. Genitourinary: Reports: hesitation. Musculoskeletal: Reports: no symptoms. Objective Last 24 Hrs of Vital Signs/I&O Vital Signs Date Time Temp Pulse Resp B/P Pulse O2 O2 Flow FiO2 Ox Delivery Rate 10/13 0723 97.8 70 20 130/70 96 Room Air 10/13 0600 64 20 153/82 10/13 0400 98.0 62 20 143/62 08 0400 97 Room Air 08 0200 65 20 167/71 02/08 0000 24.0 67 12 120/60 02/08 0000 97 Room Air 02/08 0000 98.5 67 24 120/60 97 Room Air / 2200 64 16 135/54 02/07 2000 70 20 161/67 02/07 2000 96 Room Air / 1800 98.4 77 22 148/64 02/07 1800 96 Room Air / 1800 98.4 77 22 148/64 96 Room Air / 1555 98.6 73 18 148/72 02/07 1533 96 Room Air 02/07 1528 98.6 73 18 148/72 96 Room Air 02/07 1325 186/74 02/07 1252 96.9 86 18 190/100 96 Room Air Intake & Output 10/13 1600 02/08 0800 02/08 0000 Intake Total 827 1236 Output Total 330 1110 Balance 497 126 Intake, IV 727 1236 Intake, Oral 100 0 Output, Urine 330 1110 Patient 85.049 kg 85.502 kg Weight Physical Exam General Appearance: Alert, Oriented X3, Cooperative, No Acute Distress Skin: No Rashes, No Breakdown HEENT: Atraumatic, PERRLA, EOMI Neck: Supple Cardiovascular: Regular Rate, Normal S1, Normal S2, No Murmurs Lungs: Clear to Auscultation, Normal Air Movement Abdomen: Soft, No Tenderness Neurological: Normal Speech Current Medications: Current Medications Sig/Rosi Start time Last Medication Dose Route Stop Time Status Admin Acetaminophen 650 MG Q6P PRN 10/12 1500 AC PO Aspirin 162 MG DAILY 10/13 1000 AC PO Atorvastatin Calcium 80 MG 1700 10/12 1700 AC PO Escitalopram Oxalate 20 MG DAILY 10/13 1000 AC PO Heparin Sodium 0 .STK-MED ONE 10/12 1541 DC (Porcine) .ROUTE Heparin Sodium 5,000 UNIT Q8 10/12 1453 AC 10/13 (Porcine) SC 0604 Hydralazine HCl 50 MG TID 10/12 1600 AC PO Insulin Aspart 0 TIDAC/HS 10/13 1200 AC SC Insulin Aspart 0 TIDAC 10/13 0800 DC SC Insulin Detemir 11 UNITS BID 10/13 1000 AC SC Insulin Human Regular 100 UNIT ONCE ONE 10/12 1400 DC 10/12 Sodium Chloride 100 ML IV 10/16 1759 1431 Levothyroxine Sodium 0.125 MG DAILY AC 10/13 0700 AC 10/13 PO 0604 Lisinopril 2.5 MG DAILY 10/12 1515 AC PO Metoclopramide HCl 0 .STK-MED ONE 10/12 1612 DC .ROUTE Metoclopramide HCl 10 MG ONCE ONE 10/12 1600 DC 10/12 IV 10/12 1601 1617 Metoclopramide HCl 0 .STK-MED ONE 10/12 1317 DC .ROUTE Metoclopramide HCl 10 MG ONCE ONE 10/12 1315 DC 10/12 IV 10/12 1316 1324 Morphine Sulfate 2 MG Q6-PRN PRN 10/12 1500 AC IV Multivitamins 1 TAB DAILY 10/13 1000 AC PO Nebivolol 20 MG DAILY 10/12 1508 AC 10/12 PO 1555 Ondansetron HCl 4 MG Q8P PRN 10/12 1500 AC IV Oxycodone/ 1 TAB Q6P PRN 10/12 1500 AC Acetaminophen PO Potassium Chloride 20 MEQ Q8H 10/13 0030 DC 10/13 Dextrose/Sodium 1,000 ML IV 0130 Chloride Potassium Chloride 20 MEQ Q8H 10/12 1845 DC 10/12 Sodium Chloride 1,000 ML IV 10/13 1844 2047 Promethazine HCl 12.5 MG ONCE ONE 10/12 1415 DC / IV 10/12 1416 1414 Promethazine HCl 0 .STK-MED ONE 10/12 1414 DC .ROUTE Sodium Chloride 1,000 ML Q6H 10/12 1715 DC IV 10/13 0914 Sodium Chloride 1,000 ML Q10H 10/12 1500 DC / IV 10/13 0159 1617 Sodium Chloride 1,000 ML ONCE ONE 10/12 1415 DC / IV 10/12 2214 1445 Last 24 Hrs of Lab/Cristian Results Last 24 Hrs of Labs/Mics: Laboratory Tests 10/13/16 0650: Anion Gap 10, Estimated GFR 16 L, Glucose 151 H, Calcium 8.4, Phosphorus 3.8, Magnesium 2.0, Total Bilirubin 0.6, AST 16 L, ALT 33, Albumin 3.1 L, CBC w Diff NO MAN DIFF REQ, RBC 3.32 L, MCV 92.2, MCH 30.6, RDW 13.9, MPV 8.5, Gran % 73.7, Lymphocytes % 16.6 L, Monocytes % 8.4, Eosinophils % 0.9, Basophils % 0.4 , Absolute Granulocytes 8.3 H, Absolute Lymphocytes 1.9, Absolute Monocytes 0.9 H, Absolute Eosinophils 0.1, Absolute Basophils 0, PUBS MCHC 33.2 10/13/16 0015: Anion Gap 11, Estimated GFR 16 L, Glucose 231 H, Calcium 8.5, Phosphorus 3.4, Magnesium 2.1, Total Bilirubin 0.6, AST 16 L, ALT 37, Troponin I Pending, Albumin 3.3 L 10/13/16 0008: Glucose Cancelled 10/12/162009: Anion Gap 15, Estimated GFR 15 L, BUN/Creatinine Ratio 13.2, Glucose 406 H, Troponin I 0.08 10/12/16 194: Urinalysis LIGHT H, Urine Color YEL, Urine Clarity CLEAR, Urine pH 6.0, Ur Specific [place] 1.020, Urine Protein 100 H, Urine Ketones 15 H, Urine Nitrite NEG, Urine Bilirubin NEG, Urine Urobilinogen 0.2, Ur Leukocyte Esterase NEG, Ur Microscopic SEDIMENT EXAMINED, Urine RBC 3-5, Urine WBC RARE, Ur Epithelial Cells RARE, Urine Mucus FEW, Urine Hemoglobin SMALL H, Urine Glucose >=1000 H 10/12/16 1720: Lactic Acid Cancelled 10/12/16 1713: Lactic Acid 1.9 10/12/16 1713: Ammonia < 9 L 10/12/16 1713: Anion Gap 18 H, Estimated GFR 16 L, Glucose 562 *H, Calcium 8.0 L, Phosphorus 3.6, Magnesium 2.1, Total Bilirubin 0.8, AST 24, ALT 35, Albumin 3.4 L 10/12/16 1606: Sodium Cancelled, Potassium Cancelled, Chloride Cancelled, Carbon Dioxide Cancelled, Anion Gap Cancelled, BUN Cancelled, Creatinine Cancelled, Glucose Cancelled, Calcium Cancelled, Phosphorus Cancelled, Magnesium Cancelled, Total Bilirubin Cancelled, AST Cancelled, ALT Cancelled, Albumin Cancelled 10/12/16 1502: Troponin I Cancelled 10/12/16 1420: Lactic Acid Cancelled 10/12/16 1320: Bicarbonate Actual 15 L, Mixed VBG pH 7.27 L, Mixed VBG pCO2 34 L, Mixed VBG O2 Saturation 49 H, P-50 (Temp Corrected) N, Carboxyhemoglobin 0.7 L, O2 Concentration % .21, O2 Delivery Method RA, Phlebotomy Draw Site RIGHT HAND 10/12/16 1310: Anion Gap 25 H, Estimated GFR 16 L, BUN/Creatinine Ratio 13.0, Glucose 648 *H, Serum Osmolality 343 H, Lactic Acid 3.5 H, Calcium 8.5, Total Bilirubin 1.0, AST 22, ALT 34, Alkaline Phosphatase 173 H, Troponin I 0.06, Total Protein 6.9, Albumin 4.1, Globulin 2.8, Albumin/Globulin Ratio 1.5, Amylase < 30 L, Lipase 33, CBC w Diff NO MAN DIFF REQ, RBC 3.99 L, MCV 92.3, MCH 30.6, RDW 13.7, MPV 8.4, Gran % 79.3 H, Lymphocytes % 12.6 L, Monocytes % 7.4, Eosinophils % 0.1, Basophils % 0.6, Absolute Granulocytes 8.8 H, Absolute Lymphocytes 1.4, Absolute Monocytes 0.8 H, Absolute Eosinophils 0, Absolute Basophils 0.1, PUBS MCHC 33.1, Acetone Level POSITIVE AT 1:8 DIL Microbiology 10/12 1800 UPPER RESP: Surveillance Culture - RECD 02/07 1800 GI: Surveillance Culture - RECD Assessment/Plan Assessment: This is a 56-year-old male with PMH of ESRD on MWF hemodialysis, T1 insulin- dependent diabetes with resulting retinopathy, nephropathy and previous episodes of DKA, who had a previous admission at [facility] for C. difficile colitis who presents for CC N/V/D and AMS. Upon work up pt had glucose 648, anion gap of 25 and ketones present in urine. Subsequently, admitted to ICU for DKA. PLAN: Acid base disorder 2/2 DKA: On admission:VBG 7.27/34/49. Anion gap 25. Glucose 648. Corrected Na at 145. Pt has lactic acid at 3.5. Pt has positive Acetone. Delta gap shows pure AGMA. Given history and presentation pt is in DKA. Etiology of patient's acid base disorder is most likely anion gap metabolic acidosis secondary to lactic acid and DKA along with a primary respiratory acidosis. At this time pt blood sugar <200, he is eatin PO diet, off insulin drip and started on Levemir, and gap closed. * finger stick * Renal dialysis diet * Off IVF as he is tolerating PO diet * Monitor and replete electorlytes * Levemir 11 BID * RISS Bilateral Hydronephrosis: On CT abdomen with contrast pt had bilat hydronephrosis with distended bladder. Bladder scanner showed 900cc of urine, pt stated he had the urge, but was unable to void. Al yielded almost 1L of urine. Pt has no hx of straight cath or urinary problems. Review of meds don't show any classic meds that cause urinary retention. * Voiding trial after dialysis * Placed non-urgent consult with Dr. Davis * Al in place * Follow up UA/UC ESRD: Patient is ESRD secondary to diabetic nephropathy. He has access in his left arm. He last got dialysis on Tuesday . He went for CT abdomen with contrast yesterday. We have coordinated with Dr. Green to ensure that patient will get dialysis today * Access in l. arm with good flow * Dialysis today * con't lisinopril 2.5 * Avoid nephrotoxins * Con't Nephro-bette Hypertension: Pt came in with systolic 190. Con't home reg and dialysis. * Hydralazine 50 mg 3 times a day * Bystolic 20 mg daily * Lisinopril 2.5 mg daily Hypothyroid: Con't lvothyroxine 125 Hematemesis: RESOLVED. Pt has had several episodes of nausea and vomiting in ED. He states that it started yesterday before dialysis. The emesis is thin liquid with little food content; but it was confirmed to be guiac positive. He also endorses significant lower abodminal pain. Given hx of T1 DM with retinopathy and nehpropathy likely there is some component of gastroparesis. Wbc at 11.1 with no bands and H/H stable at 12.2 and 36.9. Amylase negative, lipase negative. Alkaline phosphatase 173. CT-abdomen with IV contrast showed no acute intra abdominal pathology but showed * Metaclopramide * Pt has adverse rxn to zofran so will give phergan for nausea Altered mental status: RESOLVED. Patient came in with altered mental status and lethargy. He was unable to answer most questions at admission. Today mental status much improved; he is able to respond appropriately to my questions. Hypernatremia: RESOLVED. On admission pt had measured Na of 136; Corrected sodium of around 145; given hyperglycemia of 648. Likely 2/2 DKA and urinary losses. Today at 141. * Con't regular diet, off fluids. * recheck bep FULL CODE NPO CHEMICAL DVT PROPHYLAXIS Problem List: 1. End stage renal disease 2. Elevated lactic acid level 3. Vomiting 4. Hyperglycemia 5. DKA (diabetic ketoacidoses) Pain Ratin Pain Location: NONE Pain Goal: Remain pain free Pain Plan: NONE Tomorrow's Labs & Rationales: CBC ICU DVT/Prophylaxis: pharmacological
--- NOTE | 2016-10-13 09:15 | PN- CRCU ---
Subjective HPI/Critical Care Issues: The patient is awake and alert. He is feeling much improved, and feels close to his baseline. He is now off his insulin drip, and his anion gap is closed. He has a stable, but mild leukocytosis. Objective Current Medications: Current Medications Sig/Rosi Start time Last Medication Dose Route Stop Time Status Admin Acetaminophen 650 MG Q6P PRN 10/12 1500 AC PO Aspirin 162 MG DAILY 10/13 1000 AC PO Atorvastatin Calcium 80 MG 1700 10/12 1700 AC PO Escitalopram Oxalate 20 MG DAILY 10/13 1000 AC PO Heparin Sodium 0 .STK-MED ONE 10/12 1541 DC (Porcine) .ROUTE Heparin Sodium 5,000 UNIT Q8 10/12 1453 AC 10/13 (Porcine) SC 0604 Hydralazine HCl 50 MG TID 10/12 1600 AC PO Insulin Aspart 0 TIDAC/HS 10/13 1200 AC SC Insulin Aspart 0 TIDAC 10/13 0800 DC SC Insulin Detemir 11 UNITS BID 10/13 1000 AC SC Insulin Human Regular 100 UNIT ONCE ONE 10/12 1400 DC 10/12 Sodium Chloride 100 ML IV 10/16 1759 1431 Levothyroxine Sodium 0.125 MG DAILY AC 10/13 0700 AC 10/13 PO 0604 Lisinopril 2.5 MG DAILY 10/12 1515 AC PO Metoclopramide HCl 0 .STK-MED ONE 10/12 1612 DC .ROUTE Metoclopramide HCl 10 MG ONCE ONE 10/12 1600 DC 10/12 IV 10/12 1601 1617 Metoclopramide HCl 0 .STK-MED ONE 10/12 1317 DC .ROUTE Metoclopramide HCl 10 MG ONCE ONE 10/12 1315 DC 10/12 IV 10/12 1316 1324 Morphine Sulfate 2 MG Q6-PRN PRN 10/12 1500 AC IV Multivitamins 1 TAB DAILY 10/13 1000 AC PO Nebivolol 20 MG DAILY 10/12 1508 AC 10/12 PO 1555 Ondansetron HCl 4 MG Q8P PRN 10/12 1500 AC IV Oxycodone/ 1 TAB Q6P PRN 10/12 1500 AC Acetaminophen PO Potassium Chloride 20 MEQ Q8H 10/13 0030 DC 10/13 Dextrose/Sodium 1,000 ML IV 0130 Chloride Potassium Chloride 20 MEQ Q8H 10/12 1845 DC 10/12 Sodium Chloride 1,000 ML IV 10/13 1844 2047 Promethazine HCl 12.5 MG ONCE ONE 10/12 1415 DC / IV 10/12 1416 1414 Promethazine HCl 0 .STK-MED ONE 10/12 1414 DC .ROUTE Sodium Chloride 1,000 ML Q6H 10/12 1715 DC IV 10/13 0914 Sodium Chloride 1,000 ML Q10H 10/12 1500 DC 10/12 IV 10/13 0159 1617 Sodium Chloride 1,000 ML ONCE ONE 10/12 1415 DC / IV 10/12 2214 1445 Vital Signs & I&O Last 24 Hrs of Vitals and I&O: Vital Signs Date Time Temp Pulse Resp B/P Pulse O2 O2 Flow FiO2 Ox Delivery Rate 10/13 822 97.8 70 20 130/70 96 Room Air 10/13 0600 64 20 153/82 10/13 0400 98.0 62 20 143/62 10/13 0400 97 Room Air 10/13 0200 65 20 167/71 10/13 0000 24.0 67 12 120/60 02 0000 97 Room Air 02 0000 98.5 67 24 120/60 97 Room Air 10/12 2200 64 16 135/54 10/12 2000 70 20 161/67 10/12 2000 96 Room Air 10/12 1800 98.4 77 22 148/64 02 1800 96 Room Air 10/12 1800 98.4 77 22 148/64 96 Room Air 10/12 1555 98.6 73 18 148/72 10/12 1533 96 Room Air 10/12 1528 98.6 73 18 148/72 96 Room Air 10/12 1325 186/74 10/12 1252 96.9 86 18 190/100 96 Room Air Intake & Output 10/13 1600 08 0800 10/13 0000 Intake Total 827 1236 Output Total 330 1110 Balance 497 126 Intake, IV 727 1236 Intake, Oral 100 0 Output, Urine 330 1110 Patient 188 lb Weight Exam General Appearance: no apparent distress, alert, anxious, comfortable Head: atraumatic, normal appearance Neck: supple Respiratory: normal breath sounds, lungs clear Cardiovascular: regular rate/rhythm Abdomen: normal bowel sounds, soft, non-tender Extremities: no edema Skin: intact, normal color, warm/dry Results Last 24 Hrs of Lab Results: Laboratory Tests 10/13/16 0650: Anion Gap 10, Estimated GFR 16 L, Glucose 151 H, Calcium 8.4, Phosphorus 3.8, Magnesium 2.0, Total Bilirubin 0.6, AST 16 L, ALT 33, Albumin 3.1 L, CBC w Diff NO MAN DIFF REQ, RBC 3.32 L, MCV 92.2, MCH 30.6, RDW 13.9, MPV 8.5, Gran % 73.7, Lymphocytes % 16.6 L, Monocytes % 8.4, Eosinophils % 0.9, Basophils % 0.4 , Absolute Granulocytes 8.3 H, Absolute Lymphocytes 1.9, Absolute Monocytes 0.9 H, Absolute Eosinophils 0.1, Absolute Basophils 0, PUBS MCHC 33.2 10/13/16 0015: Anion Gap 11, Estimated GFR 16 L, Glucose 231 H, Calcium 8.5, Phosphorus 3.4, Magnesium 2.1, Total Bilirubin 0.6, AST 16 L, ALT 37, Albumin 3.3 L 10/13/16 0008: Glucose Cancelled 10/12/16 2010: Anion Gap 15, Estimated GFR 15 L, BUN/Creatinine Ratio 13.2, Glucose 406 H, Troponin I 0.08 10/12/16 194: Urinalysis LIGHT H, Urine Color YEL, Urine Clarity CLEAR, Urine pH 6.0, Ur Specific [place] 1.020, Urine Protein 100 H, Urine Ketones 15 H, Urine Nitrite NEG, Urine Bilirubin NEG, Urine Urobilinogen 0.2, Ur Leukocyte Esterase NEG, Ur Microscopic SEDIMENT EXAMINED, Urine RBC 3-5, Urine WBC RARE, Ur Epithelial Cells RARE, Urine Mucus FEW, Urine Hemoglobin SMALL H, Urine Glucose >=1000 H 10/12/16 1720: Lactic Acid Cancelled 10/12/16 1713: Lactic Acid 1.9 10/12/16 1713: Ammonia < 9 L 10/12/16 1713: Anion Gap 18 H, Estimated GFR 16 L, Glucose 562 *H, Calcium 8.0 L, Phosphorus 3.6, Magnesium 2.1, Total Bilirubin 0.8, AST 24, ALT 35, Albumin 3.4 L 10/12/16 1606: Sodium Cancelled, Potassium Cancelled, Chloride Cancelled, Carbon Dioxide Cancelled, Anion Gap Cancelled, BUN Cancelled, Creatinine Cancelled, Glucose Cancelled, Calcium Cancelled, Phosphorus Cancelled, Magnesium Cancelled, Total Bilirubin Cancelled, AST Cancelled, ALT Cancelled, Albumin Cancelled 10/12/16 1502: Troponin I Cancelled 10/12/16 1420: Lactic Acid Cancelled 10/12/16 1320: Bicarbonate Actual 15 L, Mixed VBG pH 7.27 L, Mixed VBG pCO2 34 L, Mixed VBG O2 Saturation 49 H, P-50 (Temp Corrected) N, Carboxyhemoglobin 0.7 L, O2 Concentration % .21, O2 Delivery Method RA, Phlebotomy Draw Site RIGHT HAND 10/12/16 1310: Anion Gap 25 H, Estimated GFR 16 L, BUN/Creatinine Ratio 13.0, Glucose 648 *H, Serum Osmolality 343 H, Lactic Acid 3.5 H, Calcium 8.5, Total Bilirubin 1.0, AST 22, ALT 34, Alkaline Phosphatase 173 H, Troponin I 0.06, Total Protein 6.9, Albumin 4.1, Globulin 2.8, Albumin/Globulin Ratio 1.5, Amylase < 30 L, Lipase 33, CBC w Diff NO MAN DIFF REQ, RBC 3.99 L, MCV 92.3, MCH 30.6, RDW 13.7, MPV 8.4, Gran % 79.3 H, Lymphocytes % 12.6 L, Monocytes % 7.4, Eosinophils % 0.1, Basophils % 0.6, Absolute Granulocytes 8.8 H, Absolute Lymphocytes 1.4, Absolute Monocytes 0.8 H, Absolute Eosinophils 0, Absolute Basophils 0.1, PUBS MCHC 33.1, Acetone Level POSITIVE AT 1:8 DIL Impression/Plan Impression/Plan Impression/Plan: 1. DKA, with resolved anion gap metabolic acidosis. 2. End-stage renal disease, on hemodialysis. 3. Recent history of C. difficile colitis on 07/25/2016, treated with Flagyl. The patient currently does not have diarrhea. 4. Multiple comorbidities including diabetic retinopathy, hypertension, hypothyroidism, and dyslipidemia. Recommendations: * Consult nephrology for anticipated hemodialysis. * Discontinue Al catheter. * Discontinue IV fluids. * Continue Levemir 11 units twice daily as per endocrinology. Appreciate input. * Advance diet as tolerated. * NovoLog coverage to be adjusted again as recommended by endocrine. * Continue to monitor blood sugars. * Monitor for source of infection. * Continue home medications for blood pressure control. * Continue DVT prophylaxis. * Downgrade to [place].
--- NOTE | 2016-10-13 13:23 | Cons- Nephrology ---
General Information and HPI Consulting Request Date of Consult: 10/13/16 Requested By: MINNIE SALAZAR MD Reason for Consult: ESRD; DKA History of Present Illness: Mr. Dacosta is a 56-year-old gentleman with dialysis-dependent end-stage renal disease who was admitted yesterday with a 1 day history of nausea, vomiting and altered mental status, found to be in diabetic ketoacidosis for which he has been successfully treated. He is much improved and due for dialysis today. On questioning, his current episode was not preceded by any suggestion of an infectious process. There has been no fever, chills, upper respiratory symptoms , cough, shortness of breath, abdominal pain or diarrhea. Amylase and lipase were within normal limits. There was no chest pain and troponin level was quite marginal at 0.11 his blood sugar this morning is 151 and electrolytes are within normal limits including potassium and CO2 levels. Lactic acid on admission was 1.9. Of note, he was found to have 900 mL of urine in his bladder with bilateral hydronephrosis which has not been described for him in the past. Past medical history is positive for ESRD secondary to diabetic nephropathy on dialysis support since May 2015, hypertension, hyperlipidemia, hypothyroidism, peripheral neuropathy, retinopathy, TIA versus CVA, cholelithiasis, arthritis involving knees and back, appendectomy and tonsillectomy. He is normally dialyzed on Mondays, Wednesdays and Fridays at [facility] for 3.5 hours via a left upper arm AV fistula with a target weight of 84.5 kg. Outpatient medications include Hectorol, Venofer, aspirin, hydralazine, levothyroxin, Bystolic, Robina-Jorge, Crestor, insulin, Lexapro, oxycodone and Renvela Allergies: No known drug allergies Family history: Positive for diabetes mellitus, kidney disease and CVA in her brother who at age 43. He has another brother in his early 50s with diabetes mellitus but no known kidney disease. Neither of his parents were diabetic or had kidney disease. 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 He used to drink alcohol to excess but not currently. He is 2 and has 3 children. Allergies/Medications Allergies: Coded Allergies: NO KNOWN ALLERGIES (10/12/16) Home Med List: Aspirin (Children's Aspirin) 81 MG TAB.CHEW 2 TAB PO DAILY HEART HEALTH ( Reported) Escitalopram Oxalate 20 MG TABLET 1 TAB PO DAILY MENTAL HEALTH (Reported) Folic Acid/Vit Bcomp,C (Robina-Jorge Tablet) 0.8 MG TABLET 1 TAB PO DAILY KIDNEY SUPPLEMENT (Reported) Hydralazine HCl 50 MG TABLET 50 MG PO TID HEART (Reported) Insulin Aspart (Novolog) 100 UNIT/ML VIAL 0 UNITS SC TIDAC/HS diabetes BEFORE MEALS Blood Insulin Sugar Units <80 0 81-150 4 151-200 5 201-250 6 251-300 7 301-350 8 351-400 9 >400 10, Call Doctor AT BEDTIME Blood Insulin Sugar Units <80 0 81-100 0 101-200 0 201-250 0 251-300 2 301-350 3 351-400 4 >400 5 Insulin Detemir (Levemir) 100 UNIT/ML VIAL 11 UNITS SC BID diabetes Levothyroxine Sodium (Synthroid) 125 MCG TABLET 1 TAB PO DAILY THYROID ( Reported) Lisinopril 2.5 MG TABLET 1 TAB PO D HIGH BLOOD PRESSURE (Reported) Metoclopramide HCl 5 MG/5 ML (5 ML) SOLUTION 5 ML PO Q6P PRN NAUSEA/VOMITING Nebivolol HCl (Bystolic) 20 MG TABLET 1 TAB PO DAILY HEART (Reported) Rosuvastatin Calcium (Crestor) 20 MG TABLET 1 TAB PO DAILY cholesterol ( Reported) Review of Systems Review of Systems: Review of Systems Constitutional: Reports: malaise, weakness. EENTM: Reports: no symptoms. Cardiovascular: Denies: chest pain. Respiratory: Denies: cough, short of breath. GI: Reports: abdominal pain, diarrhea, nausea, vomiting. Genitourinary: Reports: no symptoms. Musculoskeletal: Reports: no symptoms. Skin: Reports: no symptoms. Past History Travel History Traveled to [place] past 21 day No Medical History Neurological: CVA, TIA, NEUROPATHY EENT: diabetic retinopathy, retinal edema Cardiovascular: hypertension, hyperlipidemia Respiratory: NONE Gastrointestinal: C-DIFF Hepatic: cholecystitis Renal: chronic kidney disease, DIALYSIS M-W-F FISTULA L ARM Psychiatric: alcohol dependence (he has a history of alcohol ab), anxiety, depression, substance abuse, he has a remote history of alcohol abuse but has not consumed alcohol in the year he is not used injection drugs Endocrine: diabetes, hypothyroidism Blood Disorders: NONE Cancer(s): SKIN CANCER 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 Home Who Do You Live With? sibling---brother Services at Home: None Primary Language: South Korean Smoking Status: Never Smoked Functional Ability ADLs Needs Assist: dressing, eating, toileting, bathing. Ambulation: independent Exam & Diagnostic Data Vital Signs and I&O Vital Signs Date Time Temp Pulse Resp B/P Pulse O2 O2 Flow FiO2 Ox Delivery Rate 10/13 822 97.8 70 20 130/70 96 Room Air 10/13 0600 64 20 153/82 10/13 0400 98.0 62 20 143/62 10/13 0400 97 Room Air 10/13 0200 65 20 167/71 10/13 0000 24.0 67 12 120/60 02/08 0000 97 Room Air 02/08 0000 98.5 67 24 120/60 97 Room Air / 2200 64 16 135/54 / 2000 70 20 161/67 10/12 2000 96 Room Air 10/12 1800 98.4 77 22 148/64 02/07 1800 96 Room Air / 1800 98.4 77 22 148/64 96 Room Air 10/12 1555 98.6 73 18 148/72 02/07 1533 96 Room Air 10/12 1528 98.6 73 18 148/72 96 Room Air 10/12 1325 186/74 Intake & Output 10/13 1600 08 0400 10/12 1600 10/12 0400 10/11 1600 10/11 0400 Intake Total 827 1236 Output Total 330 1110 Balance 497 126 Intake, IV 727 1236 Intake, Oral 100 0 Output, Urine 330 1110 Patient 188 lb 188 lb 193 lb Weight Physical Exam: General: Well-developed, well-nourished white male in NAD Skin: No rash or jaundice HEENT: Conjunctivae pink, sclerae anicteric, mucous membranes dry Neck: Without masses or thyromegaly, no supraclavicular or cervical adenopathy Chest: Clear to P&A Heart: Regular rate and rhythm without S3 or rub Abdomen: Soft and nontender without palpable masses or organomegaly Extremities: Without cyanosis, there is trace edema; the left upper arm AV fistula is patent Neuro: No focal findings, no asterixis or myoclonus Assessment/Plan Assessment/Recommendations Assessment: 56-year-old man with dialysis-dependent end-stage renal disease and multiple comorbidities as noted who now comes in with another bout of DKA which has resolved with appropriate therapy. There does not appear to be an underlying cause such as infection, myocardial infarction, colitis, ischemic bowel or pancreatitis. He is in need of dialysis which will be provided later today. Of note and some concern is the finding of urinary retention in his bladder with bilateral hydronephrosis suggesting either bladder dysfunction or bladder outlet obstruction. This has not been previously described in this patient. Recommendations: 1. Resume outpatient medications as feasible 2. Diet (when able): 2 g sodium, 2 g potassium, 80 g protein, no concentrated sweets, 1200 mL fluid limit per day 3. Hemodialysis later today with ultrafiltration to his target weight as tolerated 4. I will order his vitamin D analog to be given with dialysis 5. Remove Al and encourage voiding; would ask urology to see regarding his urinary retention and hydronephrosis at time of admission Thank you. Will follow along with you.
--- NOTE | 2016-10-13 19:21 | Cons- Urology ---
General Information and HPI Consulting Request Date of Consult: 10/13/16 Requested By: MINNIE SALAZAR MD Reason for Consult: urinary retention: bilateral hydronephrosis Source of Information: patient, family, old records Exam Limitations: poor historian History of Present Illness: 56 year old with N/V, DKA admitted to ICU. Pt with renal failure on HD and reportedly voids every 2 days (large volumes). Denies renal colic, dysuria, incontinence. CT scan reveals new hydronephrosis and large residual in bladder. Jackson inserted and draining well. Allergies/Medications Allergies: Coded Allergies: NO KNOWN ALLERGIES (10/12/16) Home Med List: Aspirin (Children's Aspirin) 81 MG TAB.CHEW 2 TAB PO DAILY HEART HEALTH ( Reported) Escitalopram Oxalate 20 MG TABLET 1 TAB PO DAILY MENTAL HEALTH (Reported) Folic Acid/Vit Bcomp,C (Robina-Jorge Tablet) 0.8 MG TABLET 1 TAB PO DAILY KIDNEY SUPPLEMENT (Reported) Hydralazine HCl 50 MG TABLET 50 MG PO TID HEART (Reported) Insulin Aspart (Novolog) 100 UNIT/ML VIAL 0 UNITS SC TIDAC/HS diabetes BEFORE MEALS Blood Insulin Sugar Units <80 0 81-150 4 151-200 5 201-250 6 251-300 7 301-350 8 351-400 9 >400 10, Call Doctor AT BEDTIME Blood Insulin Sugar Units <80 0 81-100 0 101-200 0 201-250 0 251-300 2 301-350 3 351-400 4 >400 5 Insulin Detemir (Levemir) 100 UNIT/ML VIAL 11 UNITS SC BID diabetes Levothyroxine Sodium (Synthroid) 125 MCG TABLET 1 TAB PO DAILY THYROID ( Reported) Lisinopril 2.5 MG TABLET 1 TAB PO D HIGH BLOOD PRESSURE (Reported) Metoclopramide HCl 5 MG/5 ML (5 ML) SOLUTION 5 ML PO Q6P PRN NAUSEA/VOMITING Nebivolol HCl (Bystolic) 20 MG TABLET 1 TAB PO DAILY HEART (Reported) Rosuvastatin Calcium (Crestor) 20 MG TABLET 1 TAB PO DAILY cholesterol ( Reported) Current Medications: Current Medications Sig/Rosi Start time Last Medication Dose Route Stop Time Status Admin Acetaminophen 650 MG Q6P PRN 10/12 1500 AC PO Aspirin 162 MG DAILY 10/13 1000 AC 10/13 PO 1907 Atorvastatin Calcium 80 MG 1700 10/12 1700 AC 10/13 PO 1906 Escitalopram Oxalate 20 MG DAILY 10/13 1000 AC 10/13 PO 1907 Heparin Sodium 5,000 UNIT Q8 10/12 1453 AC 10/13 (Porcine) SC 1400 Hydralazine HCl 50 MG TID 10/12 1600 AC 10/13 PO 1906 Insulin Aspart 0 TIDAC/HS 10/13 1200 AC 10/13 SC 1218 Insulin Aspart 0 TIDAC 10/13 0800 DC SC Insulin Detemir 11 UNITS BID 10/13 1000 AC SC Insulin Human Regular 100 UNIT ONCE ONE 10/12 1400 DC 10/12 Sodium Chloride 100 ML IV 10/16 1759 1431 Levothyroxine Sodium 0.125 MG DAILY AC 10/13 0700 AC 10/13 PO 0604 Lisinopril 2.5 MG DAILY 10/12 1515 AC 10/13 PO 1906 Morphine Sulfate 2 MG Q6-PRN PRN 10/12 1500 AC IV Multivitamins 1 TAB DAILY 10/13 1000 AC 10/13 PO 1907 Nebivolol 20 MG DAILY 10/12 1508 AC 10/13 PO 1907 Ondansetron HCl 4 MG Q8P PRN 10/12 1500 AC IV Oxycodone/ 1 TAB Q6P PRN 10/12 1500 AC Acetaminophen PO Paricalcitol 5 MCG MoWeFr PRN 10/13 1530 AC IV Potassium Chloride 20 MEQ Q8H 10/13 0030 DC 10/13 Dextrose/Sodium 1,000 ML IV 0130 Chloride Potassium Chloride 20 MEQ Q8H 10/12 1845 DC 10/12 Sodium Chloride 1,000 ML IV 10/13 1844 2047 Sodium Chloride 1,000 ML ONCE ONE 10/12 1415 DC 10/12 IV 10/12 2214 1445 Past History Medical History Neurological: CVA, TIA, NEUROPATHY EENT: diabetic retinopathy, retinal edema Cardiovascular: hypertension, hyperlipidemia Respiratory: NONE Gastrointestinal: C-DIFF Hepatic: cholecystitis Renal: chronic kidney disease, DIALYSIS M-W-F FISTULA L ARM Psychiatric: alcohol dependence (he has a history of alcohol ab), anxiety, depression, substance abuse, he has a remote history of alcohol abuse but has not consumed alcohol in the year he is not used injection drugs Endocrine: diabetes, hypothyroidism Blood Disorders: NONE Cancer(s): SKIN CANCER 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 Home Who Do You Live With? sibling---brother Services at Home: None Primary Language: Tajik Smoking Status: Never Smoked Functional Ability ADLs Needs Assist: dressing, eating, toileting, bathing. Ambulation: independent Employment History Retired? unknown Review of Systems Review of Systems Constitutional: Reports: malaise, weakness. EENTM: Denies: no symptoms. Cardiovascular: Denies: no symptoms. Respiratory: Denies: no symptoms. GI: Reports: abdominal pain, bloating. Genitourinary: Reports: see HPI. Musculoskeletal: Reports: joint pain, muscle pain, muscle stiffness. Exam & Diagnostic Data Vital Signs and I&O Vital Signs Date Time Temp Pulse Resp B/P Pulse O2 O2 Flow FiO2 Ox Delivery Rate 10/13 1906 80 173/80 10/13 1000 70 124/70 10/13 0823 97.8 70 20 130/70 96 Room Air 10/13 0600 64 20 153/82 10/13 0400 98.0 62 20 143/62 10/13 0400 97 Room Air 10/13 0200 65 20 167/71 / 0000 24.0 67 12 120/60 02/08 0000 97 Room Air 02/08 0000 98.5 67 24 120/60 97 Room Air 10/12 2200 64 16 135/54 10/12 2000 70 20 161/67 10/12 2000 96 Room Air Intake & Output 10/13 1600 10/13 0810/13 0000 10/12 1600 10/12 0800 10/12 0000 Intake Total 429 191 5201 Output Total 330 1110 Balance 600 497 126 Intake, IV 919 732 3402 Intake, Oral 400 100 0 Output, Urine 330 1110 Patient 188 lb 188 lb 193 lb Weight Physical Exam General Appearance: well developed/nourished, post dialysis-feels terrible at this time. Head: atraumatic Cardiovascular: regular rate/rhythm Gastrointestinal: normal bowel sounds, soft Back: no vertebral tenderness Extremities: normal inspection Skin: intact Reproductive: Normal male genitalia Last 24 Hours of Labs: Laboratory Tests 10/13 10/13 10/13 1220 0650 0015 Chemistry Sodium (137 - 145 mmol/L) 141 141 Potassium (3.5 - 5.1 mmol/L) 4.2 3.8 Chloride (98 - 107 mmol/L) 106 105 Carbon Dioxide (22 - 30 mmol/L) 25 25 Anion Gap (5 - 16) 10 11 BUN (9 - 20 mg/dL) 52 H 54 H Creatinine (0.7 - 1.2 mg/dL) 3.9 H 4.0 H Estimated GFR (>60 ml/min) 16 L 16 L Glucose (65 - 99 mg/dL) 151 H 231 H Calcium (8.4 - 10.2 mg/dL) 8.4 8.5 Phosphorus (2.5 - 4.5 mg/dL) 3.8 3.4 Magnesium (1.6 - 2.3 mg/dL) 2.0 2.1 Total Bilirubin (0.2 - 1.3 mg/dL) 0.6 0.6 AST (17 - 59 U/L) 16 L 16 L ALT (21 - 72 U/L) 33 37 Troponin I (<0.11 ng/ml) 0.08 0.11 *H Albumin (3.5 - 5.0 g/dL) 3.1 L 3.3 L Hematology CBC w Diff NO MAN DIFF REQ WBC (4.8 - 10.8 /CUMM) 11.3 H RBC (4.70 - 6.10 /CUMM) 3.32 L Hgb (14.0 - 18.0 G/DL) 10.2 L Hct (42 - 52 %) 30.6 L MCV (80.0 - 94.0 FL) 92.2 MCH (27.0 - 31.0 PG) 30.6 RDW (11.5 - 14.5 %) 13.9 Plt Count (130 - 400 /CUMM) 223 MPV (7.4 - 10.4 FL) 8.5 Gran % (42.2 - 75.2 %) 73.7 Lymphocytes % (20.5 - 51.1 %) 16.6 L Monocytes % (1.7 - 9.3 %) 8.4 Eosinophils % (0 - 5 %) 0.9 Basophils % (0.0 - 2.0 %) 0.4 Absolute Granulocytes (1.4 - 6.5 /CUMM) 8.3 H Absolute Lymphocytes (1.2 - 3.4 /CUMM) 1.9 Absolute Monocytes (0.10 - 0.60 /CUMM) 0.9 H Absolute Eosinophils (0.0 - 0.7 /CUMM) 0.1 Absolute Basophils (0.0 - 0.2 /CUMM) 0 PUBS MCHC (33.0 - 37.0 G/DL) 33.2 10/13 Chemistry Sodium (137 - 145 mmol/L) 140 Potassium (3.5 - 5.1 mmol/L) 4.1 Chloride (98 - 107 mmol/L) 101 Carbon Dioxide (22 - 30 mmol/L) 24 Anion Gap (5 - 16) 15 BUN (9 - 20 mg/dL) 54 H Creatinine (0.7 - 1.2 mg/dL) 4.1 H Estimated GFR (>60 ml/min) 15 L BUN/Creatinine Ratio (7 - 25 %) 13.2 Glucose (65 - 99 mg/dL) Cancelled 406 H Troponin I (<0.11 ng/ml) 0.08 Urines Urinalysis LIGHT H Urine Color (YEL,AMB,STR) YEL Urine Clarity (CLEAR) CLEAR Urine pH (5.0 - 8.0) 6.0 Ur Specific [place] (1.001 - 1.035) 1.020 Urine Protein (NEG,<30 MG/DL) 100 H Urine Ketones (NEG) 15 H Urine Nitrite (NEG) NEG Urine Bilirubin (NEG) NEG Urine Urobilinogen (0.1 - 1.0 EU/dl) 0.2 Ur Leukocyte Esterase (NEG) NEG Ur Microscopic SEDIMENT EXAMINED Urine RBC (0 - 5 /HPF) 3-5 Urine WBC (0 - 2 /HPF) RARE Ur Epithelial Cells (NONE,FEW) RARE Urine Mucus (FEW,NONE) FEW Urine Hemoglobin (NEG) SMALL H Urine Glucose (N MG/DL) >=1000 H Imaging Results: PATIENT: DAFNE BARTLETT PRESENT AGE: 56 PATIENT ACCOUNT NO: [id number] : 60 LOCATION: [facility] ORDERING PHYSICIAN: BAKARI HOOKS MD SERVICE DATE: 10/12/16 EXAM TYPE: CAT - CT ABD & PELVIS W IV CONTRAST EXAMINATION: CT ABDOMEN AND PELVIS WITH CONTRAST CLINICAL INFORMATION: Diffuse lower abdominal pain. History of C. difficile. COMPARISON: CT scan abdomen pelvis 07/05/2016. TECHNIQUE: Multidetector volumetric imaging was performed of the abdomen and pelvis after the IV administration of 95 mL of Optiray 320 intravenous contrast. Sagittal and coronal reformatted images were obtained on the technologist's workstation. DLP: 436.75 mGy-cm FINDINGS: LUNG BASES: Bibasilar dependent atelectasis at both lung bases. Small layering bilateral pleural effusions. LIVER, GALLBLADDER, AND BILIARY TREE: The liver is normal in size, shape, and attenuation. No focal hepatic lesion or biliary ductal dilatation is present. There are multiple small calcified gallstones in the bladder. No edema around the gallbladder. No bile duct dilatation. The extrahepatic CBD measures 7 mm. No calcified stone within the bile ducts. PANCREAS: Unremarkable. SPLEEN: Unremarkable. ADRENAL GLANDS: Unremarkable. KIDNEYS AND URETERS: Mild hydronephrosis of the right and left kidney with dilatation of renal pelvis and calyces and ureters to the ureterovesical junction bilaterally. This is new since the prior CAT scan 07/05/2016. No renal or ureteral calculi. BLADDER: The bladder is distended. Gallbladder almost to the level of the umbilicus. Bladder measures 16 x 10.5 x 10.4 cm. No stone within the bladder. No bladder wall thickening or edema around the bladder. GASTROINTESTINAL TRACT: The small and large bowel are unremarkable. No diverticula. No bowel wall thickening or edema. No bowel obstruction. Moderate volume of stool in the colon. The appendix is not identified. There is no inflammation of the mesentery.. ABDOMINAL WALL: Small fat-containing umbilical hernia. LYMPH NODES: Normal. VASCULAR: Unremarkable. PELVIC VISCERA: Unremarkable. OSSEOUS STRUCTURES: Mild degenerative change of the hips bilateral. IMPRESSION: 1. Small dependent bilateral pleural effusions with bibasilar atelectasis. 2. Cholelithiasis. No bile duct dilatation. 3. Mild hydronephrosis of both kidneys with distended bladder. This is new since prior CAT scan 07/05/2016. 4. No acute change of the bowel. Assessment/Plan Assessment/Plan pt on HD, with urine production. voiding q 2 days. now with retention of urine >1000cc with bilateral hydro (new) due to Bladder outlet obstruction. Would start flomax 0.4mg/HS-hold if SBP<100. Void trial for (24 hours) before DC home-if fails, re-insert jackson for outpt. follow-up. Other option for pt. is to do self-intermittent catheterization daily. TURP is possibly in pt's future, if voiding trial is not successful, and pt. refuses/unable to self-cath. If pt in hospital for 3 more days, would recommend repeat Renal US in 3-4 days, to see if hyronephrosis has resolved. Copies To: DEBBIE ORANTES MD Consult Acknowledgment - Thank you for your consult request. Attending MD Review Statement Attending Statement Attending MD Statement: examined this patient, discuss w/resident/PA/[employer]P [employer] Attending Assessment/Plan: pt in retention resulting in bilat. hydro: see A/P
[2016-10-13 23:30] VITALS: BP 142/63
--- NOTE | 2016-10-14 07:02 | PN- Housestaff ---
MARA ALAS MD 10/14/16 0701: Subjective Follow-up For: Diabetic ketoacidosis Altered mental status Urinary retention Subjective: Patient seen and examined. He is seen sitting upright in his chair at bedside resting comfortably. He appears to be in no acute distress. He is oriented to person/place/time however appears lethargic and somewhat apathetic. He admits feeling frustrated about his hospital stay. He does admit that he did not sleep well last night and has had multiple loosely formed nonbloody bowel movements but otherwise feels well. He denies any blurred/double vision, numbness/tingling, headache, fever, chills, chest pain, palpitations, shortness of breath, nausea, vomiting. No overnight events reported. Review of Systems Constitutional: Reports: see HPI. Objective Last 24 Hrs of Vital Signs/I&O Vital Signs Date Time Temp Pulse Resp B/P Pulse O2 O2 Flow FiO2 Ox Delivery Rate 10/13 2330 98.1 71 18 142/63 99 Room Air 10/13 2138 72 160/73 10/13 1906 80 173/80 10/13 1000 70 124/70 10/13 0823 97.8 70 20 130/70 96 Room Air Intake & Output 10/14 0800 10/14 0000 10/13 1600 Intake Total 200 600 Output Total 150 100 Balance -150 100 600 Intake, IV 200 Intake, Oral 200 400 Output, Urine 150 100 Patient 82.242 kg 85.049 kg Weight Physical Exam General Appearance: Alert, Oriented X3, Cooperative, No Acute Distress Other Physical Findings: General -well-developed, well-nourished middle-aged man in no acute distress HEENT - NCAT, PERRL, EOMI, anicteric sclera Cardio - S1, S2 w/o murmurs/gallops/rubs Resp - CTA bilaterally w/o wheezing/rhochi/crackles GI - soft, mild left lower quadrant tenderness, nondistended, bowel sounds present -Al catheter in place draining clear red/yellow urine Neuro - Awake and alert, CN II - XII grossly intact Extremities - no edema, pulses intact Current Medications: Current Medications Sig/Rosi Start time Last Medication Dose Route Stop Time Status Admin Acetaminophen 650 MG Q6P PRN 10/12 1500 AC PO Aspirin 162 MG DAILY 10/13 1000 AC 10/13 PO 1907 Atorvastatin Calcium 80 MG 1700 02/ 1700 AC 10/13 PO 1906 Escitalopram Oxalate 20 MG DAILY 10/13 1000 AC 10/13 PO 1907 Heparin Sodium 5,000 UNIT Q8 10/12 1453 AC 10/14 (Porcine) SC 0616 Hydralazine HCl 50 MG TID 10/12 1600 AC 10/13 PO 2138 Insulin Aspart 0 TIDAC/HS 10/13 1200 AC 10/13 SC 2139 Insulin Aspart 0 TIDAC 10/13 0800 DC SC Insulin Detemir 11 UNITS BID 10/13 1000 AC 10/13 SC 2139 Insulin Human Regular 100 UNIT ONCE ONE 10/12 1400 DC 10/12 Sodium Chloride 100 ML IV 10/16 1759 1431 Levothyroxine Sodium 0.125 MG DAILY AC 10/13 0700 AC 10/14 PO 0617 Lisinopril 2.5 MG DAILY 10/12 1515 AC 10/13 PO 1906 Morphine Sulfate 2 MG Q6-PRN PRN 10/12 1500 AC IV Multivitamins 1 TAB DAILY 10/13 1000 AC 10/13 PO 1907 Nebivolol 20 MG DAILY 10/12 1508 AC 10/13 PO 1907 Ondansetron HCl 4 MG Q8P PRN 10/12 1500 AC IV Oxycodone/ 1 TAB Q6P PRN 10/12 1500 AC Acetaminophen PO Paricalcitol 5 MCG MoWeFr PRN 10/13 1530 AC IV Potassium Chloride 20 MEQ Q8H 10/13 0030 DC 10/13 Dextrose/Sodium 1,000 ML IV 0130 Chloride Tamsulosin HCl 0.4 MG 0830 10/14 0830 AC PO Last 24 Hrs of Lab/Cristian Results Last 24 Hrs of Labs/Mics: Laboratory Tests 10/13/16 1220: Troponin I 0.08 Assessment/Plan Assessment: Patient was transferred overnight from the ICU to the general medicine floor after being treated for diabetic ketoacidosis with an insulin drip. Diabetic ketoacidosis and altered mental status have subsequently resolved. Patient is still under evaluation for urinary retention for which a Al catheter is placed. Patient is to be started on Flomax today and to undergo a voiding trial. Should he fail the voiding trial the Al catheter will need to be replaced with outpatient urology follow-up. Lisinopril was increased to 5 mg today for persistent hypertension despite taking his current antihypertensive regimen. Patient will require a repeat renal ultrasound in 2-3 days, possibly as an outpatient. Urinary retention/Bilateral Hydronephrosis CT abdomen/pelvis on admission demonstrated bilateral hydronephrosis with distended bladder. Bladder scan demonstrated 900 mL of retained urine. Al catheter was placed draining >1 L of urine. -Flomax 0.4 mg by mouth daily -Voiding trial today -Al catheter removed -Urology consult -Follow-up UA/UCx End-stage renal disease on hemodialysis Secondary to diabetic nephropathy -Nephrocaps 1 tab by mouth daily -Avoid nephrotoxic medications such as NSAIDs -Hemodialysis per nephrology Hematemesis-resolved Patient witnessed to have several episodes of nausea with associated vomiting in the ED that was reportedly guaiac positive. Amylase/lipase negative. CT abdomen/pelvis ruled out any intra-abdominal pathology. -Hold Zofran due to adverse reaction -Phenergan 25 mg by mouth every 4 hours as needed for nausea IDDM/Diabetic ketoacidosis-resolved Glucose found to be elevated to 648 with VBG 7.27/34/49, AG 25, lactic acid 3.5, and positive acetone on admission. Patient treated appropriately with an insulin drip and correction of the multiple metabolic abnormalities. -Accu-Cheks 3 times a day before meals/at bedtime -Levemir 11 units twice a day -NovoLog sliding scale insulin -Daily BEP, replete as needed Hypertension -Hydralazine 50 mg 3 times a day -Bystolic 20 mg daily -Lisinopril 2.5 mg daily Hypothyroid - Levothyroxine 125 MCG by mouth daily Depression-Lexapro 20 mg by mouth daily Hyperlipidemia-atorvastatin 80 mg by mouth daily Pain plan-acetaminophen/Percocet/morphine Diet - Renal Dialysis Diet DVT PPx - subcutaneous heparin Code Status - FULL CODE Problem List: 1. Urinary retention Pain Ratin Pain Location: None Pain Goal: Remain pain free Pain Plan: As noted in plan Tomorrow's Labs & Rationales: Complete blood count-hematuria Basic electrolyte panel-metabolic disturbance VIPIN RICHTER MD 10/14/16 1224: Attending MD Review Statement Attending Statement Attending Statement: examined this patient, discuss w/resident/PA/SORTER PRICER, agreed w/resident/PA/SORTER PRICER, reviewed EMR data (avail), discussed with nursing, discussed with case mgmt, reviewed images, amended to note Attending Assessment/Plan: Patient seen and examined, denies any complaints. He still has a Al catheter and had hemturia. Al was about misti discontinued. Blood sugars are up and down. Vital Signs Date Time Temp Pulse Resp B/P Pulse O2 O2 Flow FiO2 Ox Delivery Rate 10/14 0744 200/90 10/14 0742 200/90 10/14 0842 98.1 64 18 192/80 97 Room Air 10/14 0839 200/90 10/13 2330 98.1 71 18 142/63 99 Room Air 10/13 2138 72 160/73 10/13 1906 80 173/80 on exam; aox3, nad. cv; s1,s2, rrr. resp; clear abd; soft, nt, bs+ ext; no edema. Laboratory Tests 10/14 629 Chemistry Sodium (137 - 145 mmol/L) 138 Potassium (3.5 - 5.1 mmol/L) 4.4 Chloride (98 - 107 mmol/L) 102 Carbon Dioxide (22 - 30 mmol/L) 26 Anion Gap (5 - 16) 10 BUN (9 - 20 mg/dL) 28 H Creatinine (0.7 - 1.2 mg/dL) 3.2 H Estimated GFR (>60 ml/min) 20 L Glucose (65 - 99 mg/dL) 266 H Calcium (8.4 - 10.2 mg/dL) 8.3 L Phosphorus (2.5 - 4.5 mg/dL) 3.8 Magnesium (1.6 - 2.3 mg/dL) 1.9 Total Bilirubin (0.2 - 1.3 mg/dL) 0.7 AST (17 - 59 U/L) 95 H ALT (21 - 72 U/L) 79 H Albumin (3.5 - 5.0 g/dL) 3.5 Hematology CBC w Diff NO MAN DIFF REQ WBC (4.8 - 10.8 /CUMM) 8.3 RBC (4.70 - 6.10 /CUMM) 3.74 L Hgb (14.0 - 18.0 G/DL) 11.5 L Hct (42 - 52 %) 34.2 L MCV (80.0 - 94.0 FL) 91.3 MCH (27.0 - 31.0 PG) 30.6 RDW (11.5 - 14.5 %) 14.0 Plt Count (130 - 400 /CUMM) 214 MPV (7.4 - 10.4 FL) 8.4 Gran % (42.2 - 75.2 %) 69.5 Lymphocytes % (20.5 - 51.1 %) 19.5 L Monocytes % (1.7 - 9.3 %) 8.1 Eosinophils % (0 - 5 %) 2.3 Basophils % (0.0 - 2.0 %) 0.6 Absolute Granulocytes (1.4 - 6.5 /CUMM) 5.7 Absolute Lymphocytes (1.2 - 3.4 /CUMM) 1.6 Absolute Monocytes (0.10 - 0.60 /CUMM) 0.7 H Absolute Eosinophils (0.0 - 0.7 /CUMM) 0.2 Absolute Basophils (0.0 - 0.2 /CUMM) 0 PUBS MCHC (33.0 - 37.0 G/DL) 33.5 A/P; 56 y/o M with pmh sig for ESRD hemodialysis, insulin-dependent diabetes with diabetic retinopathy/nephropathy, hypertension, hypothyroidism, hyperlipidemia, admitted with DKA. DKA is resolved and patient is transferred to medicine floor. During the hospital course patient also had urinary retention and bilateral hydronephrosis. Seen by urology and the recommended to insert the Al as well as start the patient on Flomax. At this point plan is to continue insulin regimen as recommended by endocrinology. Please follow the recommendations. Patient's Al catheter will be discontinued. He will be given a voiding trial. If he feels, patient will have Al reinserted. Patient refuses to do intermittent self- catheterization. As I mentioned, Flomax has been added. Hemodialysis per nephrology. Blood pressure was very high this morning, will monitor after he receives all of his antihypertensives. DVT Px; ALPS.
[2016-10-14 08:06] LABS: ABSOLUTE BASOPHIL COUNT 0 /CUMM (0.0-0.2); ABSOLUTE EOSINOPHIL COUNT 0.2 /CUMM (0.0-0.7); ABSOLUTE GRANULOCYTE CT 5.7 /CUMM (1.4-6.5); ABSOLUTE LYMPH COUNT 1.6 /CUMM (1.2-3.4); ABSOLUTE MONOCYTE COUNT 0.7 /CUMM (0.10-0.60); BASOPHIL % 0.6 % (0.0-2.0); EOSINOPHIL % 2.3 % (0-5); GRANULOCYTE % 69.5 % (42.2-75.2); HEMATOCRIT 34.2 % (42-52); MEAN CORPUSCULAR HGB 30.6 PG (27.0-31.0); MEAN CORPUSCULAR HGB CONC 33.5 G/DL (33.0-37.0); MEAN CORPUSCULAR VOLUME 91.3 FL (80.0-94.0); MEAN PLATELET VOLUME 8.4 FL (7.4-10.4); PLATELET COUNT 214 /CUMM (130-400); RED BLOOD CELL CT 3.74 /CUMM (4.70-6.10); WHITE BLOOD CELL COUNT 8.3 /CUMM (4.8-10.8)
[2016-10-14 08:42] VITALS: BP 192/80; BP 200/90
--- NOTE | 2016-10-14 13:28 | PN- Nephrology ---
Assessment/Plan Assessment: 1. ESRD 2. DKA - resolved 3. Urinary retention 4. HTN Suggestion: 1. Would increase lisinopril to 5 mg daily 2. Hemodialysis for tomorrow - I will arrange 3. Voiding trial today; if he fails, we will need a Al catheter and outpatient urology follow-up 4. Repeat renal ultrasound in 2-3 days - can be done as outpatient 5. Mobilize Subjective Subjective: Patient feels well and has no complaints. After Al was removed, he voided a small amount of urine. No dysuria. Objective Vital Signs and I&Os Vital Signs Date Time Temp Pulse Resp B/P Pulse O2 O2 Flow FiO2 Ox Delivery Rate 10/14 0744 200/90 10/14 0742 200/90 10/14 0842 98.1 64 18 192/80 97 Room Air 10/14 0839 200/90 10/13 2330 98.1 71 18 142/63 99 Room Air 10/13 2138 72 160/73 10/13 1906 80 173/80 Intake & Output 10/14 1600 10/14 0400 10/13 1600 10/13 0400 10/12 1600 10/12 0400 Intake Total 200 1427 1236 Output Total 150 424 039 4393 Balance -752 903 4482 126 Intake, IV 927 1236 Intake, Oral 200 500 0 Output, Urine 150 722 259 5677 Patient 181 lb 188 lb 188 lb 193 lb Weight Physical Exam: General: Well-developed, well-nourished white male in NAD Skin: No rash or jaundice HEENT: Conjunctivae pink, sclerae anicteric, mucous membranes dry Neck: Without masses or thyromegaly, no supraclavicular or cervical adenopathy Chest: Clear to P&A Heart: Regular rate and rhythm without S3 or rub Abdomen: Soft and nontender without palpable masses or organomegaly Extremities: Without cyanosis, there is trace edema; the left upper arm AV fistula is patent Neuro: No focal findings, no asterixis or myoclonus Current Medications: Current Medications Sig/Rosi Start time Last Medication Dose Route Stop Time Status Admin Acetaminophen 650 MG Q6P PRN 10/12 1500 AC PO Aspirin 162 MG DAILY 10/13 1000 AC 10/13 PO 1907 Atorvastatin Calcium 80 MG 1700 10/12 1700 AC 10/13 PO 1906 Escitalopram Oxalate 20 MG DAILY 10/13 1000 AC 10/13 PO 1907 Heparin Sodium 5,000 UNIT Q8 10/12 1453 DC 10/14 (Porcine) SC 0616 Hydralazine HCl 50 MG TID 10/12 1600 AC 10/14 PO 0844 Insulin Aspart 0 TIDAC/HS 10/13 1200 AC 10/14 SC 0835 Insulin Detemir 11 UNITS BID 10/13 1000 AC 10/14 SC 1148 Levothyroxine Sodium 0.125 MG DAILY AC 10/13 0700 AC 10/14 PO 0617 Lisinopril 2.5 MG DAILY 10/12 1515 AC 10/13 PO 1906 Morphine Sulfate 2 MG Q6-PRN PRN 10/12 1500 AC IV Multivitamins 1 TAB DAILY 10/13 1000 AC 10/13 PO 190 Nebivolol 20 MG DAILY 10/12 1508 AC 10/13 PO 1907 Ondansetron HCl 4 MG Q8P PRN 10/12 1500 DC IV Oxycodone/ 1 TAB Q6P PRN 10/12 1500 AC Acetaminophen PO Paricalcitol 5 MCG MoWeFr PRN 10/13 1530 AC IV Promethazine HCl 25 MG Q4P PRN 10/14 0800 AC PO 10/21 0759 Tamsulosin HCl 0.4 MG 0830 10/14 0830 AC 10/14 PO 0839 Results Pertinent Lab Results: Laboratory Tests 10/14 10/13 0630 1220 Chemistry Sodium (137 - 145 mmol/L) 138 Potassium (3.5 - 5.1 mmol/L) 4.4 Chloride (98 - 107 mmol/L) 102 Carbon Dioxide (22 - 30 mmol/L) 26 Anion Gap (5 - 16) 10 BUN (9 - 20 mg/dL) 28 H Creatinine (0.7 - 1.2 mg/dL) 3.2 H Estimated GFR (>60 ml/min) 20 L Glucose (65 - 99 mg/dL) 266 H Calcium (8.4 - 10.2 mg/dL) 8.3 L Phosphorus (2.5 - 4.5 mg/dL) 3.8 Magnesium (1.6 - 2.3 mg/dL) 1.9 Total Bilirubin (0.2 - 1.3 mg/dL) 0.7 AST (17 - 59 U/L) 95 H ALT (21 - 72 U/L) 79 H Troponin I (<0.11 ng/ml) 0.08 Albumin (3.5 - 5.0 g/dL) 3.5 Hematology CBC w Diff NO MAN DIFF REQ WBC (4.8 - 10.8 /CUMM) 8.3 RBC (4.70 - 6.10 /CUMM) 3.74 L Hgb (14.0 - 18.0 G/DL) 11.5 L Hct (42 - 52 %) 34.2 L MCV (80.0 - 94.0 FL) 91.3 MCH (27.0 - 31.0 PG) 30.6 RDW (11.5 - 14.5 %) 14.0 Plt Count (130 - 400 /CUMM) 214 MPV (7.4 - 10.4 FL) 8.4 Gran % (42.2 - 75.2 %) 69.5 Lymphocytes % (20.5 - 51.1 %) 19.5 L Monocytes % (1.7 - 9.3 %) 8.1 Eosinophils % (0 - 5 %) 2.3 Basophils % (0.0 - 2.0 %) 0.6 Absolute Granulocytes (1.4 - 6.5 /CUMM) 5.7 Absolute Lymphocytes (1.2 - 3.4 /CUMM) 1.6 Absolute Monocytes (0.10 - 0.60 /CUMM) 0.7 H Absolute Eosinophils (0.0 - 0.7 /CUMM) 0.2 Absolute Basophils (0.0 - 0.2 /CUMM) 0 PUBS MCHC (33.0 - 37.0 G/DL) 33.5 08 08 10/13 0650 0015 0008 Chemistry Sodium (137 - 145 mmol/L) 141 141 Potassium (3.5 - 5.1 mmol/L) 4.2 3.8 Chloride (98 - 107 mmol/L) 106 105 Carbon Dioxide (22 - 30 mmol/L) 25 25 Anion Gap (5 - 16) 10 11 BUN (9 - 20 mg/dL) 52 H 54 H Creatinine (0.7 - 1.2 mg/dL) 3.9 H 4.0 H Estimated GFR (>60 ml/min) 16 L 16 L Glucose (65 - 99 mg/dL) 151 H 231 H Cancelled Calcium (8.4 - 10.2 mg/dL) 8.4 8.5 Phosphorus (2.5 - 4.5 mg/dL) 3.8 3.4 Magnesium (1.6 - 2.3 mg/dL) 2.0 2.1 Total Bilirubin (0.2 - 1.3 mg/dL) 0.6 0.6 AST (17 - 59 U/L) 16 L 16 L ALT (21 - 72 U/L) 33 37 Troponin I (<0.11 ng/ml) 0.11 *H Albumin (3.5 - 5.0 g/dL) 3.1 L 3.3 L Hematology CBC w Diff NO MAN DIFF REQ WBC (4.8 - 10.8 /CUMM) 11.3 H RBC (4.70 - 6.10 /CUMM) 3.32 L Hgb (14.0 - 18.0 G/DL) 10.2 L Hct (42 - 52 %) 30.6 L MCV (80.0 - 94.0 FL) 92.2 MCH (27.0 - 31.0 PG) 30.6 RDW (11.5 - 14.5 %) 13.9 Plt Count (130 - 400 /CUMM) 223 MPV (7.4 - 10.4 FL) 8.5 Gran % (42.2 - 75.2 %) 73.7 Lymphocytes % (20.5 - 51.1 %) 16.6 L Monocytes % (1.7 - 9.3 %) 8.4 Eosinophils % (0 - 5 %) 0.9 Basophils % (0.0 - 2.0 %) 0.4 Absolute Granulocytes (1.4 - 6.5 /CUMM) 8.3 H Absolute Lymphocytes (1.2 - 3.4 /CUMM) 1.9 Absolute Monocytes (0.10 - 0.60 /CUMM) 0.9 H Absolute Eosinophils (0.0 - 0.7 /CUMM) 0.1 Absolute Basophils (0.0 - 0.2 /CUMM) 0 PUBS MCHC (33.0 - 37.0 G/DL) 33.2 0207 0207 10/12 1720 Chemistry Sodium (137 - 145 mmol/L) 140 Potassium (3.5 - 5.1 mmol/L) 4.1 Chloride (98 - 107 mmol/L) 101 Carbon Dioxide (22 - 30 mmol/L) 24 Anion Gap (5 - 16) 15 BUN (9 - 20 mg/dL) 54 H Creatinine (0.7 - 1.2 mg/dL) 4.1 H Estimated GFR (>60 ml/min) 15 L BUN/Creatinine Ratio (7 - 25 %) 13.2 Glucose (65 - 99 mg/dL) 406 H Lactic Acid Cancelled Troponin I (<0.11 ng/ml) 0.08 Urines Urinalysis LIGHT H Urine Color (YEL,AMB,STR) YEL Urine Clarity (CLEAR) CLEAR Urine pH (5.0 - 8.0) 6.0 Ur Specific [place] (1.001 - 1.035) 1.020 Urine Protein (NEG,<30 MG/DL) 100 H Urine Ketones (NEG) 15 H Urine Nitrite (NEG) NEG Urine Bilirubin (NEG) NEG Urine Urobilinogen (0.1 - 1.0 EU/dl) 0.2 Ur Leukocyte Esterase (NEG) NEG Ur Microscopic SEDIMENT EXAMINED Urine RBC (0 - 5 /HPF) 3-5 Urine WBC (0 - 2 /HPF) RARE Ur Epithelial Cells (NONE,FEW) RARE Urine Mucus (FEW,NONE) FEW Urine Hemoglobin (NEG) SMALL H Urine Glucose (N MG/DL) >=1000 H 10/12 10/12 10/12 10/12 10/12 1713 1713 1713 1606 1502 Chemistry Sodium (137 - 145 mmol/L) 139 Cancelled Potassium (3.5 - 5.1 mmol/L) 4.5 Cancelled Chloride (98 - 107 mmol/L) 101 Cancelled Carbon Dioxide (22 - 30 mmol/L) 19 L Cancelled Anion Gap (5 - 16) 18 H Cancelled BUN (9 - 20 mg/dL) 56 H Cancelled Creatinine (0.7 - 1.2 mg/dL) 4.0 H Cancelled Estimated GFR (>60 ml/min) 16 L Glucose (65 - 99 mg/dL) 562 *H Cancelled Lactic Acid (0.7 - 2.1 mmol/L) 1.9 Calcium (8.4 - 10.2 mg/dL) 8.0 L Cancelled Phosphorus (2.5 - 4.5 mg/dL) 3.6 Cancelled Magnesium (1.6 - 2.3 mg/dL) 2.1 Cancelled Total Bilirubin (0.2 - 1.3 mg/dL) 0.8 Cancelled AST (17 - 59 U/L) 24 Cancelled ALT (21 - 72 U/L) 35 Cancelled Ammonia (9 - 30 umol/L) < 9 L Troponin I Cancelled Albumin (3.5 - 5.0 g/dL) 3.4 L Cancelled 10/12 10/12 1420 1320 Blood Gas Bicarbonate Actual (22 - 26 MEQ/L) 15 L Mixed VBG pH (7.31 - 7.41 PH) 7.27 L Mixed VBG pCO2 (41 - 51 TORR) 34 L Mixed VBG O2 Saturation (35 - 45 TORR) 49 H P-50 (Temp Corrected) N Carboxyhemoglobin (1.5 - 5.0 %) 0.7 L O2 Concentration % .21 O2 Delivery Method RA Chemistry Lactic Acid Cancelled Miscellaneous Phlebotomy Draw Site RIGHT HAND 10/12 1310 Chemistry Sodium (137 - 145 mmol/L) 136 L Potassium (3.5 - 5.1 mmol/L) 5.2 H Chloride (98 - 107 mmol/L) 98 Carbon Dioxide (22 - 30 mmol/L) 13 L Anion Gap (5 - 16) 25 H BUN (9 - 20 mg/dL) 52 H Creatinine (0.7 - 1.2 mg/dL) 4.0 H Estimated GFR (>60 ml/min) 16 L BUN/Creatinine Ratio (7 - 25 %) 13.0 Glucose (65 - 99 mg/dL) 648 *H Serum Osmolality (285 - 295 MOSM/KG) 343 H Lactic Acid (0.7 - 2.1 mmol/L) 3.5 H Calcium (8.4 - 10.2 mg/dL) 8.5 Total Bilirubin (0.2 - 1.3 mg/dL) 1.0 AST (17 - 59 U/L) 22 ALT (21 - 72 U/L) 34 Alkaline Phosphatase (< 127 U/L) 173 H Troponin I (<0.11 ng/ml) 0.06 Total Protein (6.3 - 8.2 g/dL) 6.9 Albumin (3.5 - 5.0 g/dL) 4.1 Globulin (1.9 - 4.2 gm/dL) 2.8 Albumin/Globulin Ratio (1.1 - 2.2 %) 1.5 Amylase (30 - 110 U/L) < 30 L Lipase (23 - 300 U/L) 33 Hematology CBC w Diff NO MAN DIFF REQ WBC (4.8 - 10.8 /CUMM) 11.1 H RBC (4.70 - 6.10 /CUMM) 3.99 L Hgb (14.0 - 18.0 G/DL) 12.2 L Hct (42 - 52 %) 36.9 L MCV (80.0 - 94.0 FL) 92.3 MCH (27.0 - 31.0 PG) 30.6 RDW (11.5 - 14.5 %) 13.7 Plt Count (130 - 400 /CUMM) 256 MPV (7.4 - 10.4 FL) 8.4 Gran % (42.2 - 75.2 %) 79.3 H Lymphocytes % (20.5 - 51.1 %) 12.6 L Monocytes % (1.7 - 9.3 %) 7.4 Eosinophils % (0 - 5 %) 0.1 Basophils % (0.0 - 2.0 %) 0.6 Absolute Granulocytes (1.4 - 6.5 /CUMM) 8.8 H Absolute Lymphocytes (1.2 - 3.4 /CUMM) 1.4 Absolute Monocytes (0.10 - 0.60 /CUMM) 0.8 H Absolute Eosinophils (0.0 - 0.7 /CUMM) 0 Absolute Basophils (0.0 - 0.2 /CUMM) 0.1 PUBS MCHC (33.0 - 37.0 G/DL) 33.1 Toxicology Acetone Level (NEGATIVE) POSITIVE AT 1:8 DIL
[2016-10-14 16:07] VITALS: BP 162/70
--- NOTE | 2016-10-14 18:00 | PN- Diabetes ---
Assessment/Plan Assessment: 56-year-old male with past medical history of DM type 1 complicated with diabetic retinopathy and end-stage renal disease on hemodialysis, hypertension, hypothyroidism and dyslipidemia, presented with nausea, vomiting for the past several days. He was admitted to ICU for DKA. His DKA resolved. Now he is on medical floor.He was put on Levemir 11 units twice a day. Novolog coverage before meals and Novolog coverage at bedtime. His FSGs were 130, 142, 175, 187 and 204. Plan: continue the current insulin orders; monitor FSGs; will follow. Subjective Subjective: He feels fine. Objective Last 24 Hrs of Vital Signs/I&O Vital Signs Date Time Temp Pulse Resp B/P Pulse O2 O2 Flow FiO2 Ox Delivery Rate 10/14 1713 65 162/70 10/14 1708 65 162/70 10/14 1607 98.6 65 19 162/70 97 10/14 1419 169/76 10/14 1419 169/76 10/14 0844 200/90 10/14 0842 200/90 10/14 0842 98.1 64 18 192/80 97 Room Air 10/14 0839 200/90 10/13 2330 98.1 71 18 142/63 99 Room Air 10/13 2138 72 160/73 10/13 1906 80 173/80 Intake & Output 10/14 1600 10/14 0800 10/14 0000 Intake Total 1000 200 Output Total 10 150 100 Balance 990 -150 100 Intake, IV 0 Intake, Oral 1000 200 Number 1 Bowel Movements Output, Urine 10 150 100 Patient 181 lb Weight Findings Pertinent Lab/Cristian Results: Laboratory Tests 10/14 0630 Chemistry Sodium (137 - 145 mmol/L) 138 Potassium (3.5 - 5.1 mmol/L) 4.4 Chloride (98 - 107 mmol/L) 102 Carbon Dioxide (22 - 30 mmol/L) 26 Anion Gap (5 - 16) 10 BUN (9 - 20 mg/dL) 28 H Creatinine (0.7 - 1.2 mg/dL) 3.2 H Estimated GFR (>60 ml/min) 20 L Glucose (65 - 99 mg/dL) 266 H Calcium (8.4 - 10.2 mg/dL) 8.3 L Phosphorus (2.5 - 4.5 mg/dL) 3.8 Magnesium (1.6 - 2.3 mg/dL) 1.9 Total Bilirubin (0.2 - 1.3 mg/dL) 0.7 AST (17 - 59 U/L) 95 H ALT (21 - 72 U/L) 79 H Albumin (3.5 - 5.0 g/dL) 3.5 Hematology CBC w Diff NO MAN DIFF REQ WBC (4.8 - 10.8 /CUMM) 8.3 RBC (4.70 - 6.10 /CUMM) 3.74 L Hgb (14.0 - 18.0 G/DL) 11.5 L Hct (42 - 52 %) 34.2 L MCV (80.0 - 94.0 FL) 91.3 MCH (27.0 - 31.0 PG) 30.6 RDW (11.5 - 14.5 %) 14.0 Plt Count (130 - 400 /CUMM) 214 MPV (7.4 - 10.4 FL) 8.4 Gran % (42.2 - 75.2 %) 69.5 Lymphocytes % (20.5 - 51.1 %) 19.5 L Monocytes % (1.7 - 9.3 %) 8.1 Eosinophils % (0 - 5 %) 2.3 Basophils % (0.0 - 2.0 %) 0.6 Absolute Granulocytes (1.4 - 6.5 /CUMM) 5.7 Absolute Lymphocytes (1.2 - 3.4 /CUMM) 1.6 Absolute Monocytes (0.10 - 0.60 /CUMM) 0.7 H Absolute Eosinophils (0.0 - 0.7 /CUMM) 0.2 Absolute Basophils (0.0 - 0.2 /CUMM) 0 PUBS MCHC (33.0 - 37.0 G/DL) 33.5
[2016-10-14 23:27] VITALS: BP 148/68
--- NOTE | 2016-10-15 07:05 | PN- Housestaff ---
MARA ALAS MD 10/15/16 0705: Subjective Follow-up For: Diabetic ketoacidosis Altered mental status Urinary retention Subjective: Patient seen and examined. He is seen sitting upright in his bed enjoying his breakfast. He appears to be in no acute distress. He reports sleeping well last night and has no new complaints. He does admit to persistent diarrhea and red/yellow urine, but denies any subjective feeling of urinary fullness. Additionally he denies any headache, fever, chills, chest pain, palpitations, shortness of breath, cough, nausea, vomiting. No overnight events reported. Review of Systems Constitutional: Reports: see HPI. Objective Last 24 Hrs of Vital Signs/I&O Vital Signs Date Time Temp Pulse Resp B/P Pulse O2 O2 Flow FiO2 Ox Delivery Rate 10/15 0745 97.4 60 20 140/90 96 Room Air 10/14 2327 97.8 58 20 148/68 96 Room Air 10/14 2252 65 162/70 10/14 1713 65 162/70 10/14 1708 65 162/70 10/14 1607 98.6 65 19 162/70 97 10/14 1419 169/76 10/14 1419 169/76 10/14 0844 200/90 10/14 0842 200/90 10/14 0842 98.1 64 18 192/80 97 Room Air 10/14 0839 200/90 Intake & Output 10/15 1600 10/15 0800 10/15 0000 Intake Total 100 100 Output Total 175 Balance -75 100 Intake, Oral 100 100 Output, Urine 175 Patient 83.915 kg Weight Physical Exam General Appearance: Alert, Oriented X3, Cooperative, No Acute Distress Other Physical Findings: General -well-developed, well-nourished middle-aged man in no acute distress HEENT - NCAT, PERRL, EOMI, anicteric sclera Cardio - S1, S2 w/o murmurs/gallops/rubs Resp - CTA bilaterally w/o wheezing/rhochi/crackles GI - soft, mild left lower quadrant tenderness, nondistended, bowel sounds present Neuro - Awake and alert, CN II - XII grossly intact Extremities - no edema, pulses intact Current Medications: Current Medications Sig/Rosi Start time Last Medication Dose Route Stop Time Status Admin Acetaminophen 650 MG Q6P PRN 10/12 1500 AC PO Aspirin 162 MG DAILY 10/13 1000 AC 10/14 PO 1419 Atorvastatin Calcium 80 MG 1700 10/12 1700 AC 10/14 PO 1707 Escitalopram Oxalate 20 MG DAILY 10/13 1000 AC 10/14 PO 1420 Hydralazine HCl 50 MG TID 10/12 1600 AC 10/14 PO 2252 Insulin Aspart 0 TIDAC/HS 10/13 1200 AC 10/14 SC 2254 Insulin Detemir 11 UNITS BID 10/13 1000 AC 10/14 SC 2252 Levothyroxine Sodium 0.125 MG DAILY AC 10/13 0700 AC 10/15 PO 0541 Lisinopril 5 MG DAILY 10/15 1000 AC PO Lisinopril 2.5 MG ONCE ONE 10/14 1500 DC 10/14 PO 10/14 1501 1713 Lisinopril 2.5 MG DAILY 10/12 1515 DC 10/14 PO 1419 Morphine Sulfate 2 MG Q6-PRN PRN 10/12 1500 AC IV Multivitamins 1 TAB DAILY 10/13 1000 AC 10/14 PO 1421 Nebivolol 20 MG DAILY 10/12 1508 AC 10/14 PO 1419 Oxycodone/ 1 TAB Q6P PRN 10/12 1500 AC Acetaminophen PO Paricalcitol 5 MCG MoWeFr PRN 10/13 1530 AC IV Promethazine HCl 25 MG Q4P PRN 10/14 0800 AC 10/14 PO 10/21 0759 1716 Tamsulosin HCl 0.4 MG 0830 10/14 0830 AC 10/14 PO 0839 Assessment/Plan Assessment: Flomax was started yesterday and Al catheter was removed to attempt a voiding trial. He was observed to have retention of roughly 250 mL of urine 12 hours later, however patient admits that he voids every 1-2 days. He was able to void on his own overnight 175 mL of red yellow urine. His blood sugar was found to be low this morning however corrected appropriately with orange juice and eating breakfast. He is to be considered for discharge today. He is to obtain an outpatient renal ultrasound on 10/19/16 at 2pm for assessment of his persistent renal disease and potential hydronephrosis. He is to be continued on Lisinopril 5mg on discharge. Urinary retention/Bilateral Hydronephrosis CT abdomen/pelvis on admission demonstrated bilateral hydronephrosis with distended bladder. Bladder scan demonstrated 900 mL of retained urine. Al catheter was placed draining >1 L of urine. -Flomax 0.4 mg by mouth daily -Voiding trial today -Al catheter removed -Urology consult -Follow-up UA/UCx End-stage renal disease on hemodialysis Secondary to diabetic nephropathy -Nephrocaps 1 tab by mouth daily -Avoid nephrotoxic medications such as NSAIDs -Hemodialysis per nephrology Hematemesis-resolved Patient witnessed to have several episodes of nausea with associated vomiting in the ED that was reportedly guaiac positive. Amylase/lipase negative. CT abdomen/pelvis ruled out any intra-abdominal pathology. -Hold Zofran due to adverse reaction -Phenergan 25 mg by mouth every 4 hours as needed for nausea IDDM/Diabetic ketoacidosis-resolved Glucose found to be elevated to 648 with VBG 7.27/34/49, AG 25, lactic acid 3.5, and positive acetone on admission. Patient treated appropriately with an insulin drip and correction of the multiple metabolic abnormalities. -Accu-Cheks 3 times a day before meals/at bedtime -Levemir 10 units twice a day -NovoLog sliding scale insulin -Daily BEP, replete as needed Hypertension -Hydralazine 50 mg 3 times a day -Bystolic 20 mg daily -Lisinopril 5 mg daily Hypothyroid - Levothyroxine 125 MCG by mouth daily Depression-Lexapro 20 mg by mouth daily Hyperlipidemia-atorvastatin 80 mg by mouth daily Pain plan-acetaminophen/Percocet/morphine Diet - Renal Dialysis Diet DVT PPx - subcutaneous heparin Code Status - FULL CODE Problem List: 1. Urinary retention Pain Ratin Pain Location: None Pain Goal: Remain pain free Pain Plan: As noted and plan Tomorrow's Labs & Rationales: None VIPIN RICHTER MD 10/15/16 1310: Attending MD Review Statement Attending Statement Attending MD Statement: examined this patient, discuss w/resident/PA/DIRECTOR OF DISTRICT OFFICE, agreed w/resident/PA/DIRECTOR OF DISTRICT OFFICE, reviewed EMR data (avail), discussed with nursing, discussed with case mgmt, reviewed images, amended to note Attending Assessment/Plan: Patient seen and examined at dialysis and he was very concerned that he has not Voided large amount of urine. He otherwise denies any complaints. Vital Signs Date Time Temp Pulse Resp B/P Pulse O2 O2 Flow FiO2 Ox Delivery Rate 10/15 0745 97.4 60 20 140/90 96 Room Air 10/14 2327 97.8 58 20 148/68 96 Room Air 10/14 2252 65 162/70 10/14 1713 65 162/70 10/14 1708 65 162/70 10/14 1607 98.6 65 19 162/70 97 10/14 1419 169/76 10/14 1419 169/76 on exam; aox3, nad. cv; s1,s2, rrr. resp; clear abd; soft, nt, bs+ ext; no edema. Laboratory Tests 10/15 10/15 0900 0600 Chemistry Sodium (137 - 145 mmol/L) 138 Cancelled Potassium (3.5 - 5.1 mmol/L) 4.3 Cancelled Chloride (98 - 107 mmol/L) 103 Cancelled Carbon Dioxide (22 - 30 mmol/L) 26 Cancelled Anion Gap (5 - 16) 8 Cancelled BUN (9 - 20 mg/dL) 41 H Cancelled Creatinine (0.7 - 1.2 mg/dL) 4.6 H Cancelled Estimated GFR (>60 ml/min) 13 L BUN/Creatinine Ratio (7 - 25 %) 8.9 Cancelled Calcium (8.4 - 10.2 mg/dL) 7.8 L Hematology CBC w Diff NO MAN DIFF REQ WBC (4.8 - 10.8 /CUMM) 5.7 RBC (4.70 - 6.10 /CUMM) 3.50 L Hgb (14.0 - 18.0 G/DL) 10.7 L Hct (42 - 52 %) 31.9 L MCV (80.0 - 94.0 FL) 91.1 MCH (27.0 - 31.0 PG) 30.5 RDW (11.5 - 14.5 %) 13.8 Plt Count (130 - 400 /CUMM) 197 MPV (7.4 - 10.4 FL) 8.8 Gran % (42.2 - 75.2 %) 65.3 Lymphocytes % (20.5 - 51.1 %) 21.4 Monocytes % (1.7 - 9.3 %) 8.5 Eosinophils % (0 - 5 %) 4.0 Basophils % (0.0 - 2.0 %) 0.8 Absolute Granulocytes (1.4 - 6.5 /CUMM) 3.7 Absolute Lymphocytes (1.2 - 3.4 /CUMM) 1.2 Absolute Monocytes (0.10 - 0.60 /CUMM) 0.5 Absolute Eosinophils (0.0 - 0.7 /CUMM) 0.2 Absolute Basophils (0.0 - 0.2 /CUMM) 0 PUBS MCHC (33.0 - 37.0 G/DL) 33.5 A/P; 56 y/o M with pmh sig for ESRD hemodialysis, insulin-dependent diabetes with diabetic retinopathy/nephropathy, hypertension, hypothyroidism, hyperlipidemia, admitted with DKA. DKA is resolved and patient is transferred to medicine floor. During the hospital course patient also had urinary retention and bilateral hydronephrosis. Seen by urology and the recommended to insert the Al as well as start the patient on Flomax. Blood sugar was running low this morning therefore insulin has been adjusted by Dr. Castillo. After the dialysis, patient will try to void again. After voiding, RN to check a bladder scan for the residuals. If there are large amount of residual, patient to get the Al catheter reinserted. Patient is very reluctant and going home with the Al catheter. He is not interested in doing self- catheterization. As mentioned above, he has been started on Flomax. Hemodialysis per nephrology. We will reevaluate his discharge plan after he voids. Please notify urology about the fact that he continues to have hematuria. Continue all other current medications. DVT Px; ALPS.
[2016-10-15 07:45] VITALS: BP 140/90
[2016-10-15 08:00] VITALS: BP 187/78
--- NOTE | 2016-10-15 10:51 | PN- Diabetes ---
Assessment/Plan Assessment: 56-year-old male with past medical history of DM type 1 complicated with diabetic retinopathy and end-stage renal disease on hemodialysis, hypertension, hypothyroidism and dyslipidemia, presented with nausea, vomiting for the past several days. He was admitted to ICU for DKA. His DKA resolved. Now he is on medical floor.He was put on Levemir 11 units twice a day. Novolog coverage before meals and Novolog coverage at bedtime. His FSGs were 263, 170, 195, 251, 59 and 86. Plan: 1. derease Levemir to 10 units bid; 2. continue the current Novolog coverage before meals and Novolog coverage at bedtime; 3. monitor FSGs. will follow. Subjective Subjective: His glucose level was in the 50s this morning. Objective Last 24 Hrs of Vital Signs/I&O Vital Signs Date Time Temp Pulse Resp B/P Pulse O2 O2 Flow FiO2 Ox Delivery Rate 10/15 0745 97.4 60 20 140/90 96 Room Air 10/14 2327 97.8 58 20 148/68 96 Room Air 10/14 2252 65 162/70 10/14 1713 65 162/70 10/14 1708 65 162/70 10/14 1607 98.6 65 19 162/70 97 10/14 1419 169/76 10/14 1419 169/76 Intake & Output 10/15 1600 10/15 0800 10/15 0000 Intake Total 100 100 Output Total 175 Balance -75 100 Intake, Oral 100 100 Output, Urine 175 Patient 185 lb Weight
[2016-10-15 11:19] LABS: ABSOLUTE BASOPHIL COUNT 0 /CUMM (0.0-0.2); ABSOLUTE EOSINOPHIL COUNT 0.2 /CUMM (0.0-0.7); ABSOLUTE GRANULOCYTE CT 3.7 /CUMM (1.4-6.5); ABSOLUTE LYMPH COUNT 1.2 /CUMM (1.2-3.4); ABSOLUTE MONOCYTE COUNT 0.5 /CUMM (0.10-0.60); BASOPHIL % 0.8 % (0.0-2.0); GRANULOCYTE % 65.3 % (42.2-75.2); HEMATOCRIT 31.9 % (42-52); MEAN CORPUSCULAR HGB 30.5 PG (27.0-31.0); MEAN CORPUSCULAR HGB CONC 33.5 G/DL (33.0-37.0); MEAN CORPUSCULAR VOLUME 91.1 FL (80.0-94.0); MEAN PLATELET VOLUME 8.8 FL (7.4-10.4); PLATELET COUNT 197 /CUMM (130-400); RBC DISTRIBUTION WIDTH 13.8 % (11.5-14.5); WHITE BLOOD CELL COUNT 5.7 /CUMM (4.8-10.8)
--- NOTE | 2016-10-15 11:48 | PN- Nephrology ---
Assessment/Plan Assessment: 1. ESRD 2. DKA - resolved 3. Urinary retention 4. HTN - improved Suggestion: 1. Hemodialysis today in progress with ultrafiltration to his target weight as tolerated 2. Proceed with completion of voiding trial; if he fails (i.e. he can't void or has a large post void residual by bedside bladder scan), he will need a Al catheter and outpatient urology follow-up 3. Repeat renal ultrasound - can be done as outpatient 4. Mobilize Subjective Subjective: Patient is in good spirits without any specific complaints. He is still in the midst of his voiding trial. Blood pressure seems to have improved. His lisinopril dose has been increased to 5 mg daily. Hemodialysis currently in progress. Objective Vital Signs and I&Os Vital Signs Date Time Temp Pulse Resp B/P Pulse O2 O2 Flow FiO2 Ox Delivery Rate 10/15 0745 97.4 60 20 140/90 96 Room Air 10/14 2327 97.8 58 20 148/68 96 Room Air 10/14 2252 65 162/70 10/14 1713 65 162/70 10/14 1708 65 162/70 10/14 1607 98.6 65 19 162/70 97 10/14 1419 169/76 10/14 1419 169/76 Intake & Output 10/15 1600 10/15 0400 10/14 1600 10/14 0400 10/13 1600 10/13 0400 Intake Total 386 646 2348 200 1427 1236 Output Total 175 160 733 222 1466 Balance -75 100 169 105 8546 126 Intake, IV 0 927 1236 Intake, Oral 385 368 6875 200 500 0 Number 1 Bowel Movements Output, Urine 175 160 515 423 4272 Patient 185 lb 181 lb 188 lb 188 lb Weight Physical Exam: General: Well-developed, well-nourished white male in NAD Skin: No rash or jaundice HEENT: Conjunctivae pink, sclerae anicteric, mucous membranes dry Neck: Without masses or thyromegaly, no supraclavicular or cervical adenopathy Chest: Clear to P&A Heart: Regular rate and rhythm without S3 or rub Abdomen: Soft and nontender without palpable masses or organomegaly Extremities: Without cyanosis, there is trace edema; the left upper arm AV fistula is patent Neuro: No focal findings, no asterixis or myoclonus Current Medications: Current Medications Sig/Rosi Start time Last Medication Dose Route Stop Time Status Admin Acetaminophen 650 MG Q6P PRN 10/12 1500 AC PO Aspirin 162 MG DAILY 10/13 1000 AC 10/14 PO 1419 Atorvastatin Calcium 80 MG 1700 10/12 1700 AC 10/14 PO 1707 Escitalopram Oxalate 20 MG DAILY 10/13 1000 AC 10/14 PO 1420 Hydralazine HCl 50 MG TID 10/12 1600 AC 10/14 PO 2252 Insulin Aspart 0 TIDAC/HS 10/13 1200 AC 10/14 SC 2254 Insulin Detemir 10 UNITS BID 10/15 2200 AC SC Insulin Detemir 9 UNITS BID 10/15 1000 DC SC Insulin Detemir 11 UNITS BID 10/13 1000 DC 10/14 SC 2252 Levothyroxine Sodium 0.125 MG DAILY AC 10/13 0700 AC 10/15 PO 0541 Lisinopril 5 MG DAILY 10/15 1000 AC PO Lisinopril 2.5 MG ONCE ONE 10/14 1500 DC 10/14 PO 10/14 1501 1713 Lisinopril 2.5 MG DAILY 10/12 1515 DC 10/14 PO 1419 Morphine Sulfate 2 MG Q6-PRN PRN 10/12 1500 AC IV Multivitamins 1 TAB DAILY 10/13 1000 AC 10/14 PO 1421 Nebivolol 20 MG DAILY 10/12 1508 AC 10/14 PO 1419 Oxycodone/ 1 TAB Q6P PRN 10/12 1500 AC Acetaminophen PO Paricalcitol 5 MCG MoWeFr PRN 10/13 1530 AC IV Promethazine HCl 25 MG Q4P PRN 10/14 08 AC 10/14 PO 10/21 0759 1716 Tamsulosin HCl 0.4 MG 0830 10/14 0830 AC 10/14 PO 0839 Results Pertinent Lab Results: Laboratory Tests 10/15 10/14 0900 0630 Chemistry Sodium (137 - 145 mmol/L) 138 138 Potassium (3.5 - 5.1 mmol/L) 4.3 4.4 Chloride (98 - 107 mmol/L) 103 102 Carbon Dioxide (22 - 30 mmol/L) 26 26 Anion Gap (5 - 16) 8 10 BUN (9 - 20 mg/dL) 41 H 28 H Creatinine (0.7 - 1.2 mg/dL) 4.6 H 3.2 H Estimated GFR (>60 ml/min) 13 L 20 L BUN/Creatinine Ratio (7 - 25 %) 8.9 Glucose (65 - 99 mg/dL) 266 H Calcium (8.4 - 10.2 mg/dL) 7.8 L 8.3 L Phosphorus (2.5 - 4.5 mg/dL) 3.8 Magnesium (1.6 - 2.3 mg/dL) 1.9 Total Bilirubin (0.2 - 1.3 mg/dL) 0.7 AST (17 - 59 U/L) 95 H ALT (21 - 72 U/L) 79 H Albumin (3.5 - 5.0 g/dL) 3.5 Hematology CBC w Diff NO MAN DIFF REQ NO MAN DIFF REQ WBC (4.8 - 10.8 /CUMM) 5.7 8.3 RBC (4.70 - 6.10 /CUMM) 3.50 L 3.74 L Hgb (14.0 - 18.0 G/DL) 10.7 L 11.5 L Hct (42 - 52 %) 31.9 L 34.2 L MCV (80.0 - 94.0 FL) 91.1 91.3 MCH (27.0 - 31.0 PG) 30.5 30.6 RDW (11.5 - 14.5 %) 13.8 14.0 Plt Count (130 - 400 /CUMM) 197 214 MPV (7.4 - 10.4 FL) 8.8 8.4 Gran % (42.2 - 75.2 %) 65.3 69.5 Lymphocytes % (20.5 - 51.1 %) 21.4 19.5 L Monocytes % (1.7 - 9.3 %) 8.5 8.1 Eosinophils % (0 - 5 %) 4.0 2.3 Basophils % (0.0 - 2.0 %) 0.8 0.6 Absolute Granulocytes (1.4 - 6.5 /CUMM) 3.7 5.7 Absolute Lymphocytes (1.2 - 3.4 /CUMM) 1.2 1.6 Absolute Monocytes (0.10 - 0.60 /CUMM) 0.5 0.7 H Absolute Eosinophils (0.0 - 0.7 /CUMM) 0.2 0.2 Absolute Basophils (0.0 - 0.2 /CUMM) 0 0 PUBS MCHC (33.0 - 37.0 G/DL) 33.5 33.5 10/13 10/13 10/13 1220 0650 0015 Chemistry Sodium (137 - 145 mmol/L) 141 141 Potassium (3.5 - 5.1 mmol/L) 4.2 3.8 Chloride (98 - 107 mmol/L) 106 105 Carbon Dioxide (22 - 30 mmol/L) 25 25 Anion Gap (5 - 16) 10 11 BUN (9 - 20 mg/dL) 52 H 54 H Creatinine (0.7 - 1.2 mg/dL) 3.9 H 4.0 H Estimated GFR (>60 ml/min) 16 L 16 L Glucose (65 - 99 mg/dL) 151 H 231 H Calcium (8.4 - 10.2 mg/dL) 8.4 8.5 Phosphorus (2.5 - 4.5 mg/dL) 3.8 3.4 Magnesium (1.6 - 2.3 mg/dL) 2.0 2.1 Total Bilirubin (0.2 - 1.3 mg/dL) 0.6 0.6 AST (17 - 59 U/L) 16 L 16 L ALT (21 - 72 U/L) 33 37 Troponin I (<0.11 ng/ml) 0.08 0.11 *H Albumin (3.5 - 5.0 g/dL) 3.1 L 3.3 L Hematology CBC w Diff NO MAN DIFF REQ WBC (4.8 - 10.8 /CUMM) 11.3 H RBC (4.70 - 6.10 /CUMM) 3.32 L Hgb (14.0 - 18.0 G/DL) 10.2 L Hct (42 - 52 %) 30.6 L MCV (80.0 - 94.0 FL) 92.2 MCH (27.0 - 31.0 PG) 30.6 RDW (11.5 - 14.5 %) 13.9 Plt Count (130 - 400 /CUMM) 223 MPV (7.4 - 10.4 FL) 8.5 Gran % (42.2 - 75.2 %) 73.7 Lymphocytes % (20.5 - 51.1 %) 16.6 L Monocytes % (1.7 - 9.3 %) 8.4 Eosinophils % (0 - 5 %) 0.9 Basophils % (0.0 - 2.0 %) 0.4 Absolute Granulocytes (1.4 - 6.5 /CUMM) 8.3 H Absolute Lymphocytes (1.2 - 3.4 /CUMM) 1.9 Absolute Monocytes (0.10 - 0.60 /CUMM) 0.9 H Absolute Eosinophils (0.0 - 0.7 /CUMM) 0.1 Absolute Basophils (0.0 - 0.2 /CUMM) 0 PUBS MCHC (33.0 - 37.0 G/DL) 33.2 10/13 Chemistry Sodium (137 - 145 mmol/L) 140 Potassium (3.5 - 5.1 mmol/L) 4.1 Chloride (98 - 107 mmol/L) 101 Carbon Dioxide (22 - 30 mmol/L) 24 Anion Gap (5 - 16) 15 BUN (9 - 20 mg/dL) 54 H Creatinine (0.7 - 1.2 mg/dL) 4.1 H Estimated GFR (>60 ml/min) 15 L BUN/Creatinine Ratio (7 - 25 %) 13.2 Glucose (65 - 99 mg/dL) Cancelled 406 H Troponin I (<0.11 ng/ml) 0.08 Urines Urinalysis LIGHT H Urine Color (YEL,AMB,STR) YEL Urine Clarity (CLEAR) CLEAR Urine pH (5.0 - 8.0) 6.0 Ur Specific [place] (1.001 - 1.035) 1.020 Urine Protein (NEG,<30 MG/DL) 100 H Urine Ketones (NEG) 15 H Urine Nitrite (NEG) NEG Urine Bilirubin (NEG) NEG Urine Urobilinogen (0.1 - 1.0 EU/dl) 0.2 Ur Leukocyte Esterase (NEG) NEG Ur Microscopic SEDIMENT EXAMINED Urine RBC (0 - 5 /HPF) 3-5 Urine WBC (0 - 2 /HPF) RARE Ur Epithelial Cells (NONE,FEW) RARE Urine Mucus (FEW,NONE) FEW Urine Hemoglobin (NEG) SMALL H Urine Glucose (N MG/DL) >=1000 H 10/12 10/12 10/12 10/12 10/12 1720 1713 1713 1713 1606 Chemistry Sodium (137 - 145 mmol/L) 139 Cancelled Potassium (3.5 - 5.1 mmol/L) 4.5 Cancelled Chloride (98 - 107 mmol/L) 101 Cancelled Carbon Dioxide (22 - 30 mmol/L) 19 L Cancelled Anion Gap (5 - 16) 18 H Cancelled BUN (9 - 20 mg/dL) 56 H Cancelled Creatinine (0.7 - 1.2 mg/dL) 4.0 H Cancelled Estimated GFR (>60 ml/min) 16 L Glucose (65 - 99 mg/dL) 562 *H Cancelled Lactic Acid (0.7 - 2.1 mmol/L) Cancelled 1.9 Calcium (8.4 - 10.2 mg/dL) 8.0 L Cancelled Phosphorus (2.5 - 4.5 mg/dL) 3.6 Cancelled Magnesium (1.6 - 2.3 mg/dL) 2.1 Cancelled Total Bilirubin (0.2 - 1.3 mg/dL) 0.8 Cancelled AST (17 - 59 U/L) 24 Cancelled ALT (21 - 72 U/L) 35 Cancelled Ammonia (9 - 30 umol/L) < 9 L Albumin (3.5 - 5.0 g/dL) 3.4 L Cancelled 10/12 10/12 10/12 1502 1420 1320 Blood Gas Bicarbonate Actual (22 - 26 MEQ/L) 15 L Mixed VBG pH (7.31 - 7.41 PH) 7.27 L Mixed VBG pCO2 (41 - 51 TORR) 34 L Mixed VBG O2 Saturation (35 - 45 TORR) 49 H P-50 (Temp Corrected) N Carboxyhemoglobin (1.5 - 5.0 %) 0.7 L O2 Concentration % .21 O2 Delivery Method RA Chemistry Lactic Acid Cancelled Troponin I Cancelled Miscellaneous Phlebotomy Draw Site RIGHT HAND 10/12 1310 Chemistry Sodium (137 - 145 mmol/L) 136 L Potassium (3.5 - 5.1 mmol/L) 5.2 H Chloride (98 - 107 mmol/L) 98 Carbon Dioxide (22 - 30 mmol/L) 13 L Anion Gap (5 - 16) 25 H BUN (9 - 20 mg/dL) 52 H Creatinine (0.7 - 1.2 mg/dL) 4.0 H Estimated GFR (>60 ml/min) 16 L BUN/Creatinine Ratio (7 - 25 %) 13.0 Glucose (65 - 99 mg/dL) 648 *H Serum Osmolality (285 - 295 MOSM/KG) 343 H Lactic Acid (0.7 - 2.1 mmol/L) 3.5 H Calcium (8.4 - 10.2 mg/dL) 8.5 Total Bilirubin (0.2 - 1.3 mg/dL) 1.0 AST (17 - 59 U/L) 22 ALT (21 - 72 U/L) 34 Alkaline Phosphatase (< 127 U/L) 173 H Troponin I (<0.11 ng/ml) 0.06 Total Protein (6.3 - 8.2 g/dL) 6.9 Albumin (3.5 - 5.0 g/dL) 4.1 Globulin (1.9 - 4.2 gm/dL) 2.8 Albumin/Globulin Ratio (1.1 - 2.2 %) 1.5 Amylase (30 - 110 U/L) < 30 L Lipase (23 - 300 U/L) 33 Hematology CBC w Diff NO MAN DIFF REQ WBC (4.8 - 10.8 /CUMM) 11.1 H RBC (4.70 - 6.10 /CUMM) 3.99 L Hgb (14.0 - 18.0 G/DL) 12.2 L Hct (42 - 52 %) 36.9 L MCV (80.0 - 94.0 FL) 92.3 MCH (27.0 - 31.0 PG) 30.6 RDW (11.5 - 14.5 %) 13.7 Plt Count (130 - 400 /CUMM) 256 MPV (7.4 - 10.4 FL) 8.4 Gran % (42.2 - 75.2 %) 79.3 H Lymphocytes % (20.5 - 51.1 %) 12.6 L Monocytes % (1.7 - 9.3 %) 7.4 Eosinophils % (0 - 5 %) 0.1 Basophils % (0.0 - 2.0 %) 0.6 Absolute Granulocytes (1.4 - 6.5 /CUMM) 8.8 H Absolute Lymphocytes (1.2 - 3.4 /CUMM) 1.4 Absolute Monocytes (0.10 - 0.60 /CUMM) 0.8 H Absolute Eosinophils (0.0 - 0.7 /CUMM) 0 Absolute Basophils (0.0 - 0.2 /CUMM) 0.1 PUBS MCHC (33.0 - 37.0 G/DL) 33.1 Toxicology Acetone Level (NEGATIVE) POSITIVE AT 1:8 DIL
[2016-10-15 13:00] VITALS: BP 187/7
[2016-10-15] MEDS ORDERED: LISINOPRIL5 M1 PO (13:13)
[2016-10-15] MEDS ORDERED: FLOMAX0.4 M1 PO (13:13)
--- NOTE | 2016-10-15 13:22 | Patient Discharge Instructions ---
Discharge Instructions General Discharge Information Special Instructions: Continue to follow your diabetic/renal dialysis diet. Continue all your previous home medications at their previous doses, except for lisinopril which was increased to 5 mg daily. A new prescription was provided. Take Flomax as directed. Follow-up with your primary care provider, your urologist Dr. Davis, and your slitter helper after discharge. Be sure to attend your hemodialysis sessions. Obtain a renal ultrasound as an outpatient. Be sure to review these results with your urologist. Acute Coronary Syndrome Inclusion Criteria At DC or during hospital stay patient has or had the following: ACS DIAGNOSIS No Discharge Core Measures Meds if any: Prescribed or Continued at Discharge Meds if any: NOT Prescribed or Continued at Discharge Congestive Heart Failure Inclusion Criteria At DC or during hospital stay patient has or had the following: CHF DIAGNOSIS No Discharge Core Measures Meds if any: Prescribed or Continued at Discharge Meds if any: NOT Prescribed or Continued at Discharge Cerebrovascular accident Inclusion Criteria At DC or during hospital stay patient has or had the following: CVA/TIA Diagnosis No Discharge Core Measures Meds if any: Prescribed or Continued at Discharge Meds if any: NOT Prescribed or Continued at Discharge Venous thromboembolism Inclusion Criteria VTE Diagnosis No VTE Type NONE VTE Confirmed by (Test) NONE Discharge Core Measures - Per Current guidelines, there needs to be overlap - treatment for the first 5 days of Warfarin therapy. - If discharged on Warfarin prior to 5 days of - overlap therapy, the patient will need to be - assessed for post discharge needs including - *Post discharge parental anticoagulation - *Warfarin and/or parental anticoagulation education - *Follow up date to check INR post discharge At least 5 days overlap therapy as Inpatient No Meds if any: Prescribed or Continued at Discharge Note: Overlap Therapy is Warfarin and Anticoagulant Meds if any: NOT Prescribed or Continued at Discharge
[2016-10-15 14:00] VITALS: BP 187/78
[2016-10-15 16:00] VITALS: BP 122/78
--- NOTE | 2016-10-15 18:27 | Discharge Summary ---
Visit Information Visit Dates Admission Date: 10/12/16 Discharge Date: 10/15/16 Hospital Course Course Attending Physician: VIPIN RICHTER MD Primary Care Physician: DAVIE DIAS MD Consulting Request: 1 Consulting Specialty: Endocrinology Consulting Request: 2 Consulting Specialty: Nephrology Consulting Request: 3 Consulting Specialty: Urology Hospital Course: 56-year-old male with past medical history significant for ESRD on he HD, insulin-dependent diabetes mellitus seen for evaluation of nausea, vomiting with weakness and fatigue. Patient reportedly had decreased oral intake prior to admission with associated nausea and vomiting prior to his hemodialysis session 1 day prior to admission. Patient has a recent admission in July 2016 for which she was found have acute gastroenteritis with C. difficile colitis for which she was prescribed Flagyl. ED course: -Vitals: Temp 96.9-98.6, JR 73-86, RR 18, BP 140-190/72-100, O2 96% on room air -Exam: Somnolent/lethargic, mild distress, normal cardiopulmonary exam, exquisitely tender lower abdomen starting, slurred speech and fragmented otherwise nonfocal neurologic exam -Significant labs: BC 11.1, Hgb/HCT 12.2/36.9, and Na 136, K 5.2, BUN/CR 52/4.0, Glu 648, and an gap 25, lactic acid 3.5,Alk Phos 173, troponin 0.06, amylase <30 , positive acetone -CT abdomen/pelvis with IV contrast: Mild hydronephrosis with distended bladder, cholelithiasis without ductal dilatation Patient was started on an insulin drip with a normal saline bolus and admitted to the intensive care unit for further evaluation after closure of the anion gap and normalization the bicarbonate level with discontinuation of the insulin drip. Patient was subsequently transferred to the general medicine floor for further evaluation. Urinary retention/Bilateral Hydronephrosis CT abdomen/pelvis on admission demonstrated bilateral hydronephrosis with distended bladder. Bladder scan demonstrated 900 mL of retained urine. Al catheter was placed draining >1 L of urine. Patient was continued on Flomax per instruction of urology natural remedy consultant during patient's stay. Al catheter was removed and patient successfully passed a voiding trial with persistent hematuria. Urine culture remained negative at time of discharge. Patient was discharged home with instruction to follow-up with Dr. Davis for further evaluation of his hydronephrosis. End-stage renal disease on hemodialysis Secondary to diabetic nephropathy. Patient was given hemodialysis per nephrology instructions and continued on Nephrocaps. Hematemesis Patient witnessed to have several episodes of nausea with associated vomiting in the ED that was reportedly guaiac positive. Amylase/lipase negative. CT abdomen/pelvis ruled out any intra-abdominal pathology. She was given Phenergan by mouth for nausea, Zofran was held for history of an adverse reaction. IDDM/Diabetic ketoacidosis Glucose found to be elevated to 648 with VBG 7.27/34/49, AG 25, lactic acid 3.5, and positive acetone on admission. Patient treated appropriately with an insulin drip and correction of the multiple metabolic abnormalities. Patient was maintained on subcutaneous Levemir/NovoLog with adequate control of his blood sugar levels during his inpatient stay. He was discharged home with instruction to follow-up with his sales person as an outpatient. Allergies: Coded Allergies: NO KNOWN ALLERGIES (10/12/16) Significant Procedures: SERVICE DATE: 10/12/16 EXAM TYPE: CAT - CT ABD & PELVIS W IV CONTRAST IMPRESSION: 1. Small dependent bilateral pleural effusions with bibasilar atelectasis. 2. Cholelithiasis. No bile duct dilatation. 3. Mild hydronephrosis of both kidneys with distended bladder. This is new since prior CAT scan 07/05/2016. 4. No acute change of the bowel. Disposition Summary Disposition Principal Diagnosis: Diabetic ketoacidosis Additional Diagnosis: Urinary retention with bilateral hydronephrosis Discharge Disposition: home or self care Discharge Instructions General Discharge Information Code Status: Full Code Patient's Diet: Renal dialysis diet Patient's Activity: Return to full activity as tolerated Follow-Up Instructions/Appts: Continue to follow your diabetic/renal dialysis diet. Continue all your previous home medications at their previous doses, except for lisinopril which was increased to 5 mg daily. A new prescription was provided. Take Flomax as directed. Follow-up with your primary care provider, your urologist Dr. Davis, and your aluminum can collector after discharge. Be sure to attend your hemodialysis sessions. Obtain a renal ultrasound as an outpatient. Be sure to review these results with your urologist. Medications at Discharge Discharge Medications: Stop taking the following medications: Lisinopril (Lisinopril) 2.5 MG TABLET ORAL Every Day Continue taking these medications: Rosuvastatin Calcium (Crestor) 20 MG TABLET 1 Tablet ORAL DAILY Days = 30 Comments: Last Taken: Time: RECIEVED LIPITOR WHILE IN HOSPITAL, RECIEVED 10/15/16 4 PM Nebivolol HCl (Bystolic) 20 MG TABLET 1 Tablet ORAL DAILY Days = 30 Comments: Last Taken: 10/15/16 Time: 330 PM Hydralazine HCl (Hydralazine HCl) 50 MG TABLET 50 Milligram ORAL THREE TIMES DAILY Comments: DOSE INCREASE FROM 25MG PO TID PER PT MED LIST Last Taken: 08/03/16 Time: 1000 Aspirin (Children's Aspirin) 81 MG TAB.CHEW 2 Tablet ORAL DAILY Days = 30 Comments: Last Taken: 10/15/16 Time: 330 PM Insulin Aspart (Novolog) 100 UNIT/ML VIAL 0 Units Inject into fatty tissue BEFORE MEALS AND AT BEDTIME Days = 30 Instructions: BEFORE MEALS Blood Insulin Sugar Units <80 0 81-150 4 151-200 5 201-250 6 251-300 7 301-350 8 351-400 9 >400 10, Call Doctor AT BEDTIME Blood Insulin Sugar Units <80 0 81-100 0 101-200 0 201-250 0 251-300 2 301-350 3 351-400 4 >400 5 Comments: Last Taken: 10/15/16 Time: 345 PM Insulin Detemir (Levemir) 100 UNIT/ML VIAL 11 Units Inject into fatty tissue TWICE DAILY Days = 30 Comments: Last Taken: 10/14/16 Time: 1045 PM Metoclopramide HCl (Metoclopramide HCl) 5 MG/5 ML (5 ML) SOLUTION 5 Milliliters ORAL EVERY SIX HOURS NEEDED as needed for NAUSEA/VOMITING Qty = 100 Comments: NOT GIVEN IN HOSPITAL Levothyroxine Sodium (Synthroid) 125 MCG TABLET 1 Tablet ORAL DAILY Comments: PER PT MED LIST DOSE INCREASE FROM 112MCG DAILY Last Taken: 10/15/16 Time: 530 AM Escitalopram Oxalate (Escitalopram Oxalate) 20 MG TABLET 1 Tablet ORAL DAILY Qty = 90 Comments: PER PT MED LIST Last Taken: 10/15/16 Time: 330 PM Folic Acid/Vit Bcomp,C (Robina-Jorge Tablet) 0.8 MG TABLET 1 Tablet ORAL DAILY Comments: PER PT MED LIST NOT GIVEN IN THE HOSPITAL Start taking the following new medications: Lisinopril (Lisinopril) 5 MG TABLET 5 Milligram ORAL DAILY Qty = 30 No Refills Comments: Last Taken: 10/15/16 Time: 330 PM Tamsulosin HCl (Flomax) 0.4 MG CAP.ER.24H 0.4 Milligram ORAL 0830 Qty = 30 No Refills Comments: Last Taken: 10/15/16 Time: 330 PM Copies To: LARISSA COUGHLIN,DAVIE; GUERRERO COUGHLIN,MARIAH Jones; DEBBIE DAVIS MD; RG COUGHLIN,MIMI
== END 2016-10-15 17:30 | DRG 637 ==
LOC: ENRESERVDT → ENRESERVTM → ERH 12:32 → CRI 13:39 → ERHI 13:39 → CRI 17:19 → 2NB 10-13 20:32
PROVIDERS: Internal Medicine Cardiovascular Disease; Internal Medicine Nephrology; Physician Assistant; Student in an Organized Health Care Education/Training Program; ADMIT Internal Medicine Critical Care Medicine
PROC: 5A1D60Z (ICD-10-PCS; principal; 2016-10-13)
DX: E10.10 Type 1 diabetes mellitus with ketoacidosis without coma (principal); N18.6 End stage renal disease; K92.0 Hematemesis; I12.0 Hypertensive chronic kidney disease with stage 5 chronic kidney disease or end stage renal disease; N13.30 Unspecified hydronephrosis; E10.22 Type 1 diabetes mellitus with diabetic chronic kidney disease; Z79.4 Long term (current) use of insulin; Z99.2 Dependence on renal dialysis; E10.319 Type 1 diabetes mellitus with unspecified diabetic retinopathy without macular edema; E03.9 Hypothyroidism, unspecified; E78.5 Hyperlipidemia, unspecified; Z86.73 Personal history of transient ischemic attack (TIA), and cerebral infarction without residual deficits; E10.40 Type 1 diabetes mellitus with diabetic neuropathy, unspecified; R33.9 Retention of urine, unspecified; N32.0 Bladder-neck obstruction; F32.9 Major depressive disorder, single episode, unspecified
CPT/HCPCS: 2NBSP; CCU; 36415; 74177; 81001; 82436; 93005; 93010; 96374; 96375; 99291; J1644; J1815; J2405; J2501; J2550; J2765; J3490

== ENCOUNTER 2016-12-30 11:56 | Emergency (ER) | payer OTHER, MEDICARE ==
[~2016-12-30] VITALS: Ht 177.8 cm; Wt 86.2 kg
[~2016-12-30 11:56] MED LIST changes: +ESCITALOPRAM OX20 MG PO; +FLOMAX0.4 M1 PO; +LISINOPRIL5 M1 PO; +RENA-VITE TABL0.8 MG PO; +SYNTHROID125 MCG PO
--- NOTE | 2016-12-30 13:42 | ED GENERAL ADULT ---
History of Present Illness General Chief Complaint: Nausea, Vomiting, Diarrhea Stated Complaint: NVD Source: patient, family, old records Exam Limitations: no limitations Allergies Coded Allergies: No Known Allergies (12/30/16) Reconcile Medications Albuterol Sulfate (Ventolin Hfa) 90 MCG HFA.AER.AD 2 PUF INH Q4-6 PRN PRN WHEEZING/SHORTNESS OF BREATH Aspirin (Children's Aspirin) 81 MG TAB.CHEW 2 TAB PO DAILY HEART HEALTH ( Reported) Escitalopram Oxalate 20 MG TABLET 1 TAB PO DAILY MENTAL HEALTH (Reported) Folic Acid/Vit Bcomp,C (Robina-Jorge Tablet) 0.8 MG TABLET 1 TAB PO DAILY KIDNEY SUPPLEMENT (Reported) Hydralazine HCl 50 MG TABLET 50 MG PO TID HEART (Reported) Insulin Aspart (Novolog) 100 UNIT/ML VIAL 0 UNITS SC TIDAC/HS diabetes BEFORE MEALS Blood Insulin Sugar Units <80 0 81-150 4 151-200 5 201-250 6 251-300 7 301-350 8 351-400 9 >400 10, Call Doctor AT BEDTIME Blood Insulin Sugar Units <80 0 81-100 0 101-200 0 201-250 0 251-300 2 301-350 3 351-400 4 >400 5 Insulin Detemir (Levemir) 100 UNIT/ML VIAL 11 UNITS SC BID diabetes Levothyroxine Sodium (Synthroid) 125 MCG TABLET 1 TAB PO DAILY THYROID ( Reported) Lisinopril 5 MG TABLET 5 MG PO DAILY HYPERTENSION Metoclopramide HCl 5 MG/5 ML (5 ML) SOLUTION 5 ML PO Q6P PRN NAUSEA/VOMITING Metoclopramide HCl (Reglan) 10 MG TABLET 1 TAB PO Q8 PRN nausea Nebivolol HCl (Bystolic) 20 MG TABLET 1 TAB PO DAILY HEART (Reported) Rosuvastatin Calcium (Crestor) 20 MG TABLET 1 TAB PO DAILY cholesterol ( Reported) Tamsulosin HCl (Flomax) 0.4 MG CAP.ER.24H 0.4 MG PO 0830 URINARY RETENTION Triage Note: [facility] ED [facility]TR[facility]OM[facility]ING SINCE S/P DIALYSIS YESTERDAY. PT DID NOT TAKE INSULIN LAST PM "BECAUSE I WAS VOMITING" TOOK 11UNITS LEVEMIR AND 9UNITS NOVOLOG TODAY. LAST VOMITED 1 HOUR HOSPITALIST. REPORTS 4/10 ABD PAIN "FROM VOMITING" PT REPORTS ABLE TO TOLERATE WATER. BS 294 IN TRIAGE. Triage Nurses Notes Reviewed? yes HPI: Patient is a 56-year-old male presents for evaluation of vomiting, cough, dyspnea. Patient reports yesterday he began with cough, runny nose. Cough with clear sputum production. Patient has vomited 5-6 times since onset. Patient is unsure of his last bowel movement, reports that he has been passing flatus today. Abdominal pain is diffuse, patient attributes his abdominal pain to his coughing and vomiting. Patient had dialysis yesterday and reports symptoms began after dialysis. Positive orthopnea and intermittent dyspnea. Dyspnea is currently mild while sitting up on the stretcher. Chronic lower extremity swelling that is unchanged from his baseline. Patient's blood sugar was elevated at home today, in the high 300s. Patient did not take his long-acting insulin last night. Patient took 9 units of NovoLog this morning. (EDGAR BLANCO,SANTOS) Vital Signs & Intake/Output Vital Signs & Intake/Output Vital Signs Date Time Temp Pulse Resp B/P B/P Pulse O2 O2 Flow FiO2 Mean Ox Delivery Rate 12/30 1702 100.0 77 20 178/74 94 Room Air 12/30 1542 95 12/30 1446 98.8 71 22 186/82 Room Air 12/30 1428 98.6 82 18 186/82 96 Room Air 12/30 1240 Room Air 12/30 1158 98.7 70 16 179/71 95 Room Air Past History Travel History Traveled to [place] past 21 day No Medical History Any Pertinent Medical History? 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 Laser eye surgery RIGHT SIDED CYNTHIA CATHETER Psychosocial History Who do you live with Brother Services at Home None What is your primary language Uruguayan Tobacco Use: Refused to answer Family History Family History, If Any: BROTHER Diabetes mellitus BROTHER Diabetes mellitus MOTHER FH: colon cancer FATHER Aortic valve disorder BROTHER Relation not specified for: FHx: chronic kidney disease Hx Contributory? No (SANTOS MAO) Review of Systems Review of Systems Constitutional: Reports: malaise, weakness. Denies: chills, fever. EENTM: Reports: no symptoms. Respiratory: Reports: cough, orthopnea, short of breath, sputum production. Cardiovascular: Reports: peripheral edema (CHRONIC, UNCHANGED). Denies: chest pain. GI: Reports: abdominal pain, constipation, nausea, vomiting. Denies: diarrhea. Genitourinary: Reports: no symptoms. Musculoskeletal: Reports: no symptoms. Skin: Reports: no symptoms. Neurological/Psychological: Reports: no symptoms. Hematologic/Endocrine: Reports: other (ELEVATED BLOOD SUGAR TODAY). Immunologic/Allergic: Reports: no symptoms. (SANTOS MAO) Physical Exam Physical Exam General Appearance: alert, awake Head: atraumatic, normal appearance Eyes: Bilateral: normal appearance, PERRL, EOMI. Ears, Nose, Throat: normal ENT inspection, hearing grossly normal Neck: normal inspection, supple, full range of motion Respiratory: chest non-tender, INTERMITTENT MILD DIFFUSE EXPIRATORY WHEEZING. dIFFUSE RALES Cardiovascular: regular rate/rhythm Gastrointestinal: normal bowel sounds, soft, MILD DIFFUSE ABDOMINAL TENDERNESS. nO RIGIDITY, REBOUND, GUARDING Back: normal inspection, normal range of motion Extremities: 1+ BILATERAL LOWER EXTREMITY EDEMA Neurologic/Psych: awake, alert, oriented x 3 Skin: intact, normal color, warm/dry Lymphatic: no anterior cervical mignon Core Measures ACS in differential dx? No CVA/TIA Diagnosis: No Severe Sepsis Present: No Septic Shock Present: No (SANTOS MAO) Progress Differential Diagnoses I considered the following diagnoses in my evaluation of the patient: Bronchitis , pneumonia, CHF, intra-abdominal infection, small bowel obstruction, DKA, sepsis Diagnostic Imaging: Viewed by Me: Radiology Read. Discussed w/RAD: Radiology Read. Initial ED EKG: normal axis, normal intervals, normal p-waves, normal QRS complex, normal sinus rhythm, no ST T wave changes (SANTOS MAO) Plan of Care: Orders Procedure Date/time Status Add-on Test (ER Only) 12/30 1344 Active MIXED VENOUS BLOOD GAS (GEN) 12/30 1342 Complete Telemetry/Press Operator Carbon Blocks 12/30 1342 Active BLOOD CULTURE 12/30 1342 Active SERUM OSMOLALITY 12/30 1342 Complete LIPASE 12/30 1342 Complete LACTIC ACID 12/30 1342 Complete COMPREHENSIVE METABOLIC PANEL 12/30 1342 Complete CBC WITHOUT DIFFERENTIAL 12/30 1342 Complete B-TYPE NATRIURETIC PEP (BNP) 12/30 1342 Complete ACETONE 12/30 1342 Complete EKG 12/30 1342 Active Laboratory Tests 12/30/16 1642: Lactic Acid Cancelled 12/30/16 1435: Anion Gap 14, Estimated GFR 20 L, BUN/Creatinine Ratio 11.3, Glucose 232 H, Serum Osmolality 300 H, Lactic Acid 1.1, Calcium 7.4 L, Total Bilirubin 0.7, AST 22, ALT 39, Alkaline Phosphatase 129 H, Rgq-Q-Yqxmmdseups Pept 6380 H, Total Protein 5.9 L, Albumin 3.1 L, Globulin 2.8, Albumin/Globulin Ratio 1.1, Lipase 43, CBC w Diff NO MAN DIFF REQ, RBC 3.37 L, MCV 90.7, MCH 30.6, RDW 13.5 , MPV 8.0, Gran % 68.3, Lymphocytes % 13.9 L, Monocytes % 15.3 H, Eosinophils % 2.0, Basophils % 0.5, Absolute Granulocytes 3.9, Absolute Lymphocytes 0.8 L, Absolute Monocytes 0.9 H, Absolute Eosinophils 0.1, Absolute Basophils 0, PUBS MCHC 33.7, Acetone Level POSITIVE : UNDILUTED 12/30/16 1425: Bicarbonate Actual 21 L, Mixed VBG pH 7.43 H, Mixed VBG pCO2 32 L, Mixed VBG O2 Saturation 64 H, P-50 (Temp Corrected) N, Carboxyhemoglobin 1.0 L, O2 Concentration % .21, Temperature 98.6, O2 Delivery Method RA, Phlebotomy Draw Site RIGHT HAND Microbiology 12/30 1526 BLOOD: Blood Culture - RECD 12/30 1435 BLOOD: Blood Culture - RECD 12/30/2016 2:35:32 PM: Patient had episode of unresponsiveness after receiving IV morphine. Upon my arrival patient alert and oriented, back to his baseline. Heart and lung exam unremarkable. 12/30/2016 3:38:12 PM: Patient reports that his abdomen is feeling significantly improved. Nausea significantly improved. Patient continues with cough. Patient requesting something to drink. Nebulizer treatment ordered. Patient discussed with and seen by Dr. Roche. 12/30/2016 4:26:24 PM: Patient reports breathing feels significantly improved after nebulizer treatment. Patient tolerating water appropriately. Patient appears stable for discharge. Patient has dialysis tomorrow. (SANTOS MAO) Departure Departure Time of Disposition: 1626 Disposition: HOME OR SELF CARE Condition: Stable Clinical Impression Primary Impression: Bronchitis Secondary Impressions: Vomiting Qualifiers: Vomiting type: unspecified Vomiting Intractability: non-intractable Nausea presence: with nausea Qualified Code: R11.2 - Nausea with vomiting, unspecified Referrals: IGLESIA [facility] MD (PCP/Family) Additional Instructions: Follow-up with dialysis tomorrow as scheduled. Monitor your blood sugar closely. Return to the emergency department if breathing worsening, unable to stay hydrated, or worsening of symptoms. Departure Forms: Customer Survey General Discharge Information Prescriptions: Current Visit Scripts Metoclopramide HCl (Reglan) 1 TAB PO Q8 PRN nausea #10 TAB Albuterol Sulfate (Ventolin Hfa) 2 PUF INH Q4-6 PRN PRN WHEEZING/SHORTNESS OF BREATH #1 INHAL (SANTOS MAO) PA/FUR JOINER Co-Sign Statement Statement: ED Attending supervision documentation- [X] I saw and evaluated the patient. I have also reviewed all the pertinent lab results and diagnostic results. I agree with the findings and the plan of care as documented in the PA's/FUR JOINER's documentation. [] I have reviewed the ED Record and agree with the PA's/FUR JOINER's documentation. [] Additions or exceptions (if any) to the PAs/FUR JOINER's note and plan are summarized below: [] (SO COUGHLIN,JOHAN Haider) Critical Care Note Critical Care Note Critical Care Time: non-applicable (SANTOS MAO)
--- NOTE | 2016-12-30 14:28 | RADIOLOGY REPORT ---
EXAMINATION: XR PORTABLE CHEST CLINICAL INFORMATION: Cough, orthopnea, dyspnea. Evaluate for CHF/pneumonia. COMPARISON: Chest 08/14/2016. TECHNIQUE: Portable AP 80 degrees upright view of the chest was obtained. FINDINGS: The heart is normal in size. There is no congestion or focal consolidation. There are stable degenerative changes in both shoulders. IMPRESSION: No acute cardiopulmonary process.
--- NOTE | 2016-12-30 14:29 | RADIOLOGY REPORT ---
EXAMINATION: XR KIDNEYS URETERS AND BLADDER. CLINICAL INFORMATION: Abdominal pain and vomiting. Unsure of last bowel movement. COMPARISON: Scanogram from CT scan 10/12/2016. TECHNIQUE: AP view abdomen. KUB: No pathologic-appearing calcifications are seen. Small spherical calcifications deep pelvis are likely phleboliths. Bowel gas pattern is nonspecific in appearance. No focal destructive or sclerotic osseous lesions are seen. There are mild degenerative changes in the spine and right hip greater than left. Visualized lung bases are clear. IMPRESSION: Unremarkable single view abdomen.
[2016-12-30 14:51] LABS: ABSOLUTE BASOPHIL COUNT 0 /CUMM (0.0-0.2); ABSOLUTE EOSINOPHIL COUNT 0.1 /CUMM (0.0-0.7); ABSOLUTE GRANULOCYTE CT 3.9 /CUMM (1.4-6.5); ABSOLUTE LYMPH COUNT 0.8 /CUMM (1.2-3.4); ABSOLUTE MONOCYTE COUNT 0.9 /CUMM (0.10-0.60); BASOPHIL % 0.5 % (0.0-2.0); GRANULOCYTE % 68.3 % (42.2-75.2); HEMATOCRIT 30.6 % (42-52); MEAN CORPUSCULAR HGB 30.6 PG (27.0-31.0); MEAN CORPUSCULAR HGB CONC 33.7 G/DL (33.0-37.0); MEAN CORPUSCULAR VOLUME 90.7 FL (80.0-94.0); PLATELET COUNT 167 /CUMM (130-400); RBC DISTRIBUTION WIDTH 13.5 % (11.5-14.5); RED BLOOD CELL CT 3.37 /CUMM (4.70-6.10); WHITE BLOOD CELL COUNT 5.7 /CUMM (4.8-10.8)
[2016-12-30] MEDS ORDERED: VENTOLIN HFA18 GM INH (16:28)
[2016-12-30] MEDS ORDERED: REGLAN10 M1 PO (16:28)
[2016-12-30 17:02] VITALS: BP 178/74
== END 2016-12-30 17:06 ==
LOC: ERH 11:56
PROVIDERS: Physician Assistant
DX: J40 Bronchitis, not specified as acute or chronic (principal); R11.10 Vomiting, unspecified; R10.9 Unspecified abdominal pain; R06.00 Dyspnea, unspecified
CPT/HCPCS: 1263; 74000; 87040; 93005; 93010; 96374; 96375; J2765